=== PATIENT | female | born 1960 | race African-American/Black ===

== ENCOUNTER 2020-11-26 17:20 | Inpatient (IN) | payer MEDICAID ==
[~2020-11-26] VITALS: Ht 162.6 cm; Wt 147.0 kg
[~2020-11-26 17:20] MED LIST: ALBU18 IN; ATEN50TA PO; BENA40TA8 PO; CLON0.2T PO; FLUT500M2 IN; GLIP5TAB12 PO; METF-370 PO
[2020-11-26] MEDS ORDERED: methylPREDNISolone SOD SUCC 125 MG/2 ML VL IV ONE (18:45)
[2020-11-26] MEDS: IPRATROPIUM BROM 0.5 MG/2.5ML INH SOL NEB ONE ×2 (19:00→19:09)
[2020-11-26] MEDS: ALBUTEROL SULF 2.5 MG/0.5ML(0.5%) NEB SOLN NEB ONE ×2 (19:00→19:10)
[2020-11-26 19:58] LABS: Basophils # (auto) 0 10 ^3/uL (0-0.2); Basophils % (auto) 0.5 % (0.0-2.0); Eosinophils # (auto) 0.1 10 ^3/uL (0-0.8); Eosinophils % (auto) 0.9 % (0.0-7.0); Hematocrit 46.8 % (36.0-46.0); Hemoglobin 14.8 g/dL (12.2-16.2); Lymphocytes # (auto) 1.5 10 ^3/uL (0.4-5.4); Lymphocytes % (auto) 20.9 % (10.0-50.0); Mean Corpuscular Hemoglobin 28.6 pg (28.0-32.0); Mean Corpuscular Hgb Conc. 31.5 g/dL (32.0-36.0); Mean Corpuscular Volume 90.7 fL (80.0-100.0); Monocytes # (auto) 0.6 10 ^3/uL (0-1.3); Monocytes % (auto) 9.4 % (0.0-12.0); Neutrophils # (auto) 4.7 10 ^3/uL (1.6-8.6); Neutrophils % (auto) 68.3 % (37.0-80.0); Nucleated Red Blood Cells % 2.8 %; Platelet Count (auto) 220 10^3/uL (140-450); Red Blood Cells 5.16 10^6/uL (4.0-5.20); Red Cell Distribution Width 16.8 % (11.8-14.3); White Blood Cell 6.9 10^3/uL (4.4-10.8)
[2020-11-26 20:20] LABS: Albumin 2.7 g/dL (3.4-5.0); Calcium 8.3 mg/dL (8.5-10.1); Potassium 4.3 mmol/L (3.5-5.1)
[2020-11-26 20:28] LABS: BUN/Creatinine Ratio 22.2; Bilirubin, Total 0.8 mg/dL (0.2-1.0); Total Protein 7.8 g/dL (6.4-8.2)
[2020-11-26] MEDS ORDERED: FUROSEMIDE 40 MG/4 ML VIAL IV ONE (21:45)
[2020-11-27] MEDS ORDERED: ACETAMINOPHEN 500 MG TAB PO ONE (01:30)
[2020-11-27] MEDS ORDERED: IOHEXOL 350 MG/ML 100ML IJ ONE (10:19)
[2020-11-27] MEDS ORDERED: MORPHINE SULF INJ 2 MG/ML SYRINGE 1ML IV PRN (13:15)
[2020-11-27] MEDS ORDERED: NITROGLYCERIN 0.4 MG SL TAB SL PRN (13:15)
[2020-11-27] MEDS ORDERED: ONDANSETRON HCL 4 MG/2 ML VIAL IV PRN (14:00)
[2020-11-27] MEDS ORDERED: ATOR20TA50 PO (15:39)
[2020-11-27] MEDS ORDERED: NIFE1TAB30 PO (15:39)
[2020-11-27] MEDS ORDERED: DEXTROSE (50%) 50ML SYRG IV PRN (18:15)
[2020-11-27] MEDS: methylPREDNISolone SOD SUCC 40 MG/ML VL IV SCH (18:20)
[2020-11-27] MEDS: FUROSEMIDE 40 MG/4 ML VIAL IV SCH (18:25)
[2020-11-27] MEDS: ACCU-CHEK COMFORT CURVE STRIP VI SCH (18:25)
[2020-11-27] MEDS: HYDROcodone-ACET 5/325MG TAB PO PRN (19:07)
[2020-11-27 21:43] LABS: BUN/Creatinine Ratio 23.6; Calcium 8.8 mg/dL (8.5-10.1); Potassium 4.4 mmol/L (3.5-5.1)
[2020-11-27] MEDS: ENOXAPARIN SOD 150 MG/1 ML SYRINGE SC SCH (22:00)
[2020-11-27] MEDS: InsuLIN REG 1unit/0.01ml Soln (100units/ml) SC SCH (22:00)
[2020-11-28] MEDS: FUROSEMIDE 40 MG/4 ML VIAL IV SCH ×2 (06:00→17:50)
[2020-11-28] MEDS: methylPREDNISolone SOD SUCC 40 MG/ML VL IV SCH ×4 (06:00→17:50)
[2020-11-28 06:20] LABS: Basophils # (auto) 0 10 ^3/uL (0-0.2); Basophils % (auto) 0.2 % (0.0-2.0); Eosinophils # (auto) 0 10 ^3/uL (0-0.8); Hematocrit 48.6 % (36.0-46.0); Hemoglobin 15.4 g/dL (12.2-16.2); Lymphocytes # (auto) 0.5 10 ^3/uL (0.4-5.4); Lymphocytes % (auto) 7.4 % (10.0-50.0); Mean Corpuscular Hemoglobin 28.5 pg (28.0-32.0); Mean Corpuscular Hgb Conc. 31.6 g/dL (32.0-36.0); Mean Corpuscular Volume 90.1 fL (80.0-100.0); Monocytes # (auto) 0.4 10 ^3/uL (0-1.3); Monocytes % (auto) 5.4 % (0.0-12.0); Neutrophils # (auto) 5.8 10 ^3/uL (1.6-8.6); Nucleated Red Blood Cells % 0.9 %; Platelet Count (auto) 228 10^3/uL (140-450); Red Blood Cells 5.39 10^6/uL (4.0-5.20); White Blood Cell 6.7 10^3/uL (4.4-10.8)
[2020-11-28] MEDS ORDERED: FUROSEMIDE 40 MG/4 ML VIAL ONE (06:32)
[2020-11-28 06:37] LABS: BUN/Creatinine Ratio 27.1; Calcium 9.2 mg/dL (8.5-10.1); Magnesium 1.7 mg/dL (1.6-2.6); Potassium 4.7 mmol/L (3.5-5.1)
[2020-11-28] MEDS: InsuLIN REG 1unit/0.01ml Soln (100units/ml) SC SCH ×4 (06:39→22:00)
[2020-11-28] MEDS: ACCU-CHEK COMFORT CURVE STRIP VI SCH ×4 (06:39→22:14)
[2020-11-28] MEDS: ENOXAPARIN SOD 150 MG/1 ML SYRINGE SC SCH ×2 (09:58→22:00)
[2020-11-28] MEDS: levoFLOXacin 500MG 100 ML IV SCH (09:59)
[2020-11-28] MEDS ORDERED: metFORMIN HYDROCHLORIDE 500 MG TAB PO ONE (12:15)
[2020-11-28] MEDS ORDERED: glipiZIDE 5 MG TAB PO ONE (12:15)
[2020-11-28] MEDS ORDERED: TIZA4TAB3 PO (15:49)
[2020-11-28] MEDS ORDERED: FURO40TA4 PO (15:49)
[2020-11-28] MEDS ORDERED: POTA1TAB64 PO (15:49)
[2020-11-28] MEDS ORDERED: GAB100C PO (15:49)
[2020-11-28] MEDS ORDERED: HYDR-4072 PO (15:50)
[2020-11-28 16:30] VITALS: BP 144/73
[2020-11-28 21:05] VITALS: BP 149/84
[2020-11-28] MEDS: glipiZIDE 5 MG TAB PO SCH (22:00)
[2020-11-28] MEDS: metFORMIN HYDROCHLORIDE 500 MG TAB PO SCH (22:00)
[2020-11-28] MEDS: HYDROcodone-ACET 5/325MG TAB PO PRN (22:54)
[2020-11-29] MEDS: methylPREDNISolone SOD SUCC 40 MG/ML VL IV SCH ×4 (00:06→17:37)
[2020-11-29] MEDS: ATENOLOL 50 MG TAB PO SCH (05:00)
[2020-11-29 05:12] VITALS: BP 160/101
[2020-11-29] MEDS: InsuLIN REG 1unit/0.01ml Soln (100units/ml) SC SCH ×4 (06:04→22:04)
[2020-11-29 06:05] VITALS: BP 144/80
[2020-11-29] MEDS: FUROSEMIDE 40 MG/4 ML VIAL IV SCH ×2 (06:35→17:37)
[2020-11-29] MEDS: ACCU-CHEK COMFORT CURVE STRIP VI SCH ×4 (06:35→21:45)
[2020-11-29 07:38] VITALS: BP 159/107
[2020-11-29] MEDS: ATORVASTATIN 20 MG TAB PO SCH (10:20)
[2020-11-29] MEDS: metFORMIN HYDROCHLORIDE 500 MG TAB PO SCH (10:20)
[2020-11-29] MEDS: levoFLOXacin 500MG 100 ML IV SCH (10:20)
[2020-11-29] MEDS: ENOXAPARIN SOD 150 MG/1 ML SYRINGE SC SCH ×2 (10:21→21:44)
[2020-11-29] MEDS: glipiZIDE 5 MG TAB PO SCH ×2 (12:42→21:44)
[2020-11-29] MEDS: BENAZEPRIL HCL 10 MG TAB PO SCH (12:53)
[2020-11-29] MEDS: NIFEdipine ER 30 MG TAB PO SCH (12:54)
[2020-11-29 13:10] VITALS: BP 155/74
[2020-11-29] MEDS: cloNIDine HCL 0.1 MG TAB PO SCH ×2 (14:11→21:43)
[2020-11-29 16:08] VITALS: BP 123/58
[2020-11-29] MEDS: ACETAMINOPHEN 325 MG TAB PO PRN (17:38)
[2020-11-29 22:00] VITALS: BP 149/97
[2020-11-29] MEDS: MORPHINE SULF INJ 2 MG/ML SYRINGE 1ML IV PRN (22:01)
[2020-11-30] MEDS: methylPREDNISolone SOD SUCC 40 MG/ML VL IV SCH ×5 (00:23→23:32)
[2020-11-30] MEDS: HYDROcodone-ACET 5/325MG TAB PO PRN (01:10)
[2020-11-30 05:00] VITALS: BP 117/72
[2020-11-30] MEDS: FUROSEMIDE 40 MG/4 ML VIAL IV SCH (05:37)
[2020-11-30] MEDS: cloNIDine HCL 0.1 MG TAB PO SCH ×3 (05:56→21:43)
[2020-11-30] MEDS: MORPHINE SULF INJ 2 MG/ML SYRINGE 1ML IV PRN ×2 (06:21→19:32)
[2020-11-30] MEDS: ACCU-CHEK COMFORT CURVE STRIP VI SCH ×4 (06:21→21:48)
[2020-11-30] MEDS: InsuLIN REG 1unit/0.01ml Soln (100units/ml) SC SCH ×4 (06:59→21:48)
[2020-11-30 07:23] LABS: Basophils # (auto) 0 10 ^3/uL (0-0.2); Basophils % (auto) 0.1 % (0.0-2.0); Eosinophils # (auto) 0 10 ^3/uL (0-0.8); Hemoglobin 15.3 g/dL (12.2-16.2); Lymphocytes # (auto) 0.5 10 ^3/uL (0.4-5.4); Lymphocytes % (auto) 7.4 % (10.0-50.0); Mean Corpuscular Hemoglobin 28.2 pg (28.0-32.0); Mean Corpuscular Hgb Conc. 31.9 g/dL (32.0-36.0); Mean Corpuscular Volume 88.4 fL (80.0-100.0); Monocytes # (auto) 0.4 10 ^3/uL (0-1.3); Monocytes % (auto) 6.5 % (0.0-12.0); Neutrophils # (auto) 5.8 10 ^3/uL (1.6-8.6); Nucleated Red Blood Cells % 0.5 %; Platelet Count (auto) 233 10^3/uL (140-450); Red Blood Cells 5.43 10^6/uL (4.0-5.20); Red Cell Distribution Width 16.5 % (11.8-14.3); White Blood Cell 6.7 10^3/uL (4.4-10.8)
[2020-11-30 07:45] LABS: Potassium 4.1 mmol/L (3.5-5.1)
[2020-11-30 07:49] LABS: BUN/Creatinine Ratio 37.7; Calcium 9.1 mg/dL (8.5-10.1); Magnesium 1.8 mg/dL (1.6-2.6)
[2020-11-30 09:00] VITALS: BP 124/86
[2020-11-30] MEDS: levoFLOXacin 500MG 100 ML IV SCH (10:22)
[2020-11-30] MEDS: BENAZEPRIL HCL 10 MG TAB PO SCH (10:23)
[2020-11-30] MEDS: ATORVASTATIN 20 MG TAB PO SCH (10:23)
[2020-11-30] MEDS: ENOXAPARIN SOD 150 MG/1 ML SYRINGE SC SCH ×2 (10:24→21:27)
[2020-11-30] MEDS: ATENOLOL 50 MG TAB PO SCH (10:24)
[2020-11-30] MEDS: NIFEdipine ER 30 MG TAB PO SCH (10:24)
[2020-11-30] MEDS: glipiZIDE 5 MG TAB PO SCH ×2 (12:57→21:27)
[2020-11-30 13:00] VITALS: BP 143/82
[2020-11-30] MEDS: ACETAMINOPHEN 325 MG TAB PO PRN (17:19)
[2020-11-30 22:00] VITALS: BP 117/67
[2020-12-01] MEDS: MORPHINE SULF INJ 2 MG/ML SYRINGE 1ML IV PRN ×3 (01:09→15:36)
[2020-12-01 05:00] VITALS: BP 132/82
[2020-12-01] MEDS: methylPREDNISolone SOD SUCC 40 MG/ML VL IV SCH ×3 (05:26→17:34)
[2020-12-01] MEDS: cloNIDine HCL 0.1 MG TAB PO SCH ×4 (05:26→21:41)
[2020-12-01 06:15] LABS: Basophils # (auto) 0 10 ^3/uL (0-0.2); Basophils % (auto) 0.1 % (0.0-2.0); Eosinophils # (auto) 0 10 ^3/uL (0-0.8); Hematocrit 47.7 % (36.0-46.0); Hemoglobin 15.4 g/dL (12.2-16.2); Lymphocytes # (auto) 0.4 10 ^3/uL (0.4-5.4); Mean Corpuscular Hemoglobin 28.3 pg (28.0-32.0); Mean Corpuscular Hgb Conc. 32.2 g/dL (32.0-36.0); Mean Corpuscular Volume 87.8 fL (80.0-100.0); Monocytes # (auto) 0.6 10 ^3/uL (0-1.3); Monocytes % (auto) 9.8 % (0.0-12.0); Neutrophils # (auto) 5.4 10 ^3/uL (1.6-8.6); Neutrophils % (auto) 84.1 % (37.0-80.0); Nucleated Red Blood Cells % 0.5 %; Platelet Count (auto) 210 10^3/uL (140-450); Red Blood Cells 5.43 10^6/uL (4.0-5.20); White Blood Cell 6.4 10^3/uL (4.4-10.8)
[2020-12-01 06:37] LABS: Calcium 8.5 mg/dL (8.5-10.1); Magnesium 2.1 mg/dL (1.6-2.6); Potassium 4.3 mmol/L (3.5-5.1)
[2020-12-01] MEDS: ACCU-CHEK COMFORT CURVE STRIP VI SCH ×4 (06:38→21:15)
[2020-12-01] MEDS: InsuLIN REG 1unit/0.01ml Soln (100units/ml) SC SCH ×4 (06:39→21:41)
[2020-12-01 06:41] LABS: BUN/Creatinine Ratio 43.1
[2020-12-01 09:00] VITALS: BP 158/110
[2020-12-01] MEDS: levoFLOXacin 500MG 100 ML IV SCH (09:49)
[2020-12-01] MEDS: NIFEdipine ER 30 MG TAB PO SCH (09:49)
[2020-12-01] MEDS: ENOXAPARIN SOD 150 MG/1 ML SYRINGE SC SCH ×2 (09:49→21:15)
[2020-12-01] MEDS: ATORVASTATIN 20 MG TAB PO SCH (09:50)
[2020-12-01] MEDS: BENAZEPRIL HCL 10 MG TAB PO SCH (09:50)
[2020-12-01] MEDS: ATENOLOL 50 MG TAB PO SCH (09:51)
[2020-12-01] MEDS: glipiZIDE 5 MG TAB PO SCH ×2 (09:55→21:16)
[2020-12-01] MEDS: FUROSEMIDE 40 MG/4 ML VIAL IV SCH (12:25)
[2020-12-01 13:00] VITALS: BP 144/95
[2020-12-01] MEDS ORDERED: LORazepam 2MG/ML-1ML VIAL IV ONE (17:00)
[2020-12-01] MEDS ORDERED: diazePAM 5 MG TAB PO ONE (17:00)
[2020-12-01 17:39] VITALS: BP 100/55
[2020-12-01 22:00] VITALS: BP 135/78
[2020-12-01] MEDS: HYDROcodone-ACET 5/325MG TAB PO PRN (23:09)
[2020-12-02] MEDS: methylPREDNISolone SOD SUCC 40 MG/ML VL IV SCH ×3 (00:18→11:51)
[2020-12-02 05:00] VITALS: BP 134/89
[2020-12-02] MEDS: MORPHINE SULF INJ 2 MG/ML SYRINGE 1ML IV PRN ×2 (05:46→14:45)
[2020-12-02] MEDS: cloNIDine HCL 0.1 MG TAB PO SCH ×2 (05:47→14:06)
[2020-12-02 06:30] LABS: Basophils # (auto) 0 10 ^3/uL (0-0.2); Basophils % (auto) 0.1 % (0.0-2.0); Eosinophils # (auto) 0 10 ^3/uL (0-0.8); Hematocrit 46.9 % (36.0-46.0); Lymphocytes # (auto) 0.4 10 ^3/uL (0.4-5.4); Mean Corpuscular Volume 87.5 fL (80.0-100.0); Monocytes # (auto) 0.5 10 ^3/uL (0-1.3); Monocytes % (auto) 8.6 % (0.0-12.0); Neutrophils # (auto) 4.6 10 ^3/uL (1.6-8.6); Neutrophils % (auto) 84.3 % (37.0-80.0); Nucleated Red Blood Cells % 0.4 %; Platelet Count (auto) 196 10^3/uL (140-450); Red Blood Cells 5.36 10^6/uL (4.0-5.20); Red Cell Distribution Width 15.9 % (11.8-14.3); White Blood Cell 5.4 10^3/uL (4.4-10.8)
[2020-12-02] MEDS: ACCU-CHEK COMFORT CURVE STRIP VI SCH ×2 (06:30→11:56)
[2020-12-02] MEDS: InsuLIN REG 1unit/0.01ml Soln (100units/ml) SC SCH ×2 (06:31→11:56)
[2020-12-02 06:46] LABS: BUN/Creatinine Ratio 36.7; Magnesium 2.1 mg/dL (1.6-2.6); Potassium 4.3 mmol/L (3.5-5.1)
[2020-12-02 06:49] LABS: Bilirubin, Total 0.9 mg/dL (0.2-1.0); Total Protein 7.1 g/dL (6.4-8.2)
[2020-12-02 09:00] VITALS: BP 145/95
[2020-12-02] MEDS: levoFLOXacin 500MG 100 ML IV SCH (09:58)
[2020-12-02] MEDS: FUROSEMIDE 40 MG/4 ML VIAL IV SCH (09:58)
[2020-12-02] MEDS: ATORVASTATIN 20 MG TAB PO SCH (09:59)
[2020-12-02] MEDS: BENAZEPRIL HCL 10 MG TAB PO SCH (09:59)
[2020-12-02] MEDS: NIFEdipine ER 30 MG TAB PO SCH (09:59)
[2020-12-02] MEDS: ENOXAPARIN SOD 150 MG/1 ML SYRINGE SC SCH (10:00)
[2020-12-02] MEDS: ATENOLOL 50 MG TAB PO SCH (10:00)
[2020-12-02] MEDS: glipiZIDE 5 MG TAB PO SCH (10:13)
[2020-12-02 13:00] VITALS: BP 149/92
== END 2020-12-02 17:17 | disposition left against medical advice (07) | DRG 140 ==
LOC: ER 17:20 → EDBD 17:20 → TELE 17:21 → TELE-EAST 11-28 14:39
PROVIDERS: ADMIT Internal Medicine; ATTEND Internal Medicine
DX: J44.1 Chronic obstructive pulmonary disease with (acute) exacerbation (principal); J96.21 Acute and chronic respiratory failure with hypoxia; J18.9 Pneumonia, unspecified organism; I50.33 Acute on chronic diastolic (congestive) heart failure; I11.0 Hypertensive heart disease with heart failure; E66.01 Morbid (severe) obesity due to excess calories; E87.2 Acidosis; I27.20 Pulmonary hypertension, unspecified; Z68.43 Body mass index [BMI] 50.0-59.9, adult; J44.0 Chronic obstructive pulmonary disease with (acute) lower respiratory infection; E11.9 Type 2 diabetes mellitus without complications; Z20.822 Contact with and (suspected) exposure to COVID-19; K21.9 Gastro-esophageal reflux disease without esophagitis; Z53.20 Procedure and treatment not carried out because of patient's decision for unspecified reasons; M51.36 Other intervertebral disc degeneration, lumbar region; B18.2 Chronic viral hepatitis C; T50.1X5A Adverse effect of loop [high-ceiling] diuretics, initial encounter; Y92.89 Other specified places as the place of occurrence of the external cause; Z87.891 Personal history of nicotine dependence; Z90.710 Acquired absence of both cervix and uterus; Z91.19 Patient's noncompliance with other medical treatment and regimen
CPT/HCPCS: 36415; 71045; 78582; 80048; 80053; 82962; 83036; 83605; 83735; 83880; 84484; 85025; 85379; 87426; 93005; 93306; 93970; 97163; G0378; J1815; J1956

== ENCOUNTER 2020-12-18 12:28 | Inpatient (IN) | payer MEDICAID ==
[~2020-12-18] VITALS: Ht 160 cm; Wt 145.9 kg
[~2020-12-18 12:28] MED LIST changes: +ATOR20TA50 PO; +FURO40TA4 PO; +GAB100C PO; +HYDR-4072 PO; +NIFE1TAB30 PO; +POTA1TAB64 PO; +TIZA4TAB3 PO
[2020-12-18 13:35] LABS: Basophils # (auto) 0 10 ^3/uL (0-0.2); Basophils % (auto) 0.6 % (0.0-2.0); Eosinophils # (auto) 0.3 10 ^3/uL (0-0.8); Eosinophils % (auto) 4.8 % (0.0-7.0); Hematocrit 47.5 % (36.0-46.0); Lymphocytes % (auto) 18.3 % (10.0-50.0); Mean Corpuscular Hemoglobin 28.1 pg (28.0-32.0); Mean Corpuscular Hgb Conc. 31.7 g/dL (32.0-36.0); Mean Corpuscular Volume 88.7 fL (80.0-100.0); Monocytes # (auto) 0.4 10 ^3/uL (0-1.3); Monocytes % (auto) 7.7 % (0.0-12.0); Neutrophils # (auto) 3.8 10 ^3/uL (1.6-8.6); Neutrophils % (auto) 68.6 % (37.0-80.0); Nucleated Red Blood Cells % 0.5 %; Platelet Count (auto) 225 10^3/uL (140-450); Red Blood Cells 5.35 10^6/uL (4.0-5.20); Red Cell Distribution Width 16.6 % (11.8-14.3); White Blood Cell 5.6 10^3/uL (4.4-10.8)
[2020-12-18 13:51] LABS: Alanine Aminotransferase 25 U/L (13-56); Albumin 3.3 g/dL (3.4-5.0); Anion Gap 4 (5-15); Aspartate Aminotransferase 20 U/L (15-37); Blood Urea Nitrogen 14 mg/dL (7-18); Calcium 9.2 mg/dL (8.5-10.1); Carbon Dioxide 35 mmol/L (21-32); Chloride 101 mmol/L (98-107); GFR African American 110 mL/min; GFR Non-African American 91 mL/min; Glucose 105 mg/dL (74-106); INR 1.09 (0.9-1.15); Potassium 3.8 mmol/L (3.5-5.1); Sodium 140 mmol/L (136-145)
[2020-12-18 13:55] LABS: Alkaline Phosphatase 72 U/L (45-117); Bilirubin, Total 0.8 mg/dL (0.2-1.0); Total Protein 8.1 g/dL (6.4-8.2)
[2020-12-18] MEDS ORDERED: HYDROcodone-ACET 10/325MG TAB PO ONE (14:00)
[2020-12-18] MEDS ORDERED: cefTRIAXone 1GM/50ML D5W 50 ML IV ONE (15:45)
[2020-12-18] MEDS ORDERED: AZITHROMYCIN 500MG/ 250ML 250 ML IV ONE (15:45)
[2020-12-18] MEDS ORDERED: ONDANSETRON HCL 4 MG/2 ML VIAL IV PRN (15:45)
[2020-12-18] MEDS ORDERED: NITROGLYCERIN 0.4 MG SL TAB SL PRN (15:45)
[2020-12-18] MEDS ORDERED: DEXTROSE (50%) 50ML SYRG IV PRN (15:45)
[2020-12-18] MEDS ORDERED: MORPHINE SULF INJ 2 MG/ML SYRINGE 1ML IV PRN (15:45)
[2020-12-18] MEDS ORDERED: methylPREDNISolone SOD SUCC 125 MG/2 ML VL IV ONE (15:45)
[2020-12-18] MEDS ORDERED: FUROSEMIDE 20 MG/2 ML VIAL IV ONE (15:45)
[2020-12-18] MEDS ORDERED: HYDROcodone-ACET 5/325MG TAB PO PRN (15:45)
[2020-12-18] MEDS ORDERED: ALBUTEROL SULF 2.5 MG/0.5ML(0.5%) NEB SOLN NEB PRN (16:00)
[2020-12-18] MEDS ORDERED: IPRATROPIUM BROM 0.5 MG/2.5ML INH SOL NEB PRN (16:00)
[2020-12-18] MEDS: levoFLOXacin 500MG 100 ML IV SCH (17:06)
[2020-12-18] MEDS: ACCU-CHEK COMFORT CURVE STRIP VI SCH ×2 (17:14→22:30)
[2020-12-18] MEDS: glipiZIDE 5 MG TAB PO SCH (17:22)
[2020-12-18] MEDS: InsuLIN REG 1unit/0.01ml Soln (100units/ml) SC SCH ×2 (17:25→22:30)
[2020-12-18] MEDS: hydrALAZINE HCL 20 MG/ML VL IV PRN (17:29)
[2020-12-18 21:04] VITALS: BP 157/84
[2020-12-18 21:25] VITALS: BP 154/81
[2020-12-18 22:00] VITALS: BP 154/81
[2020-12-18] MEDS: ACETAMINOPHEN 325 MG TAB PO PRN (22:20)
[2020-12-18] MEDS: MORPHINE SULF INJ 2 MG/ML SYRINGE 1ML IV PRN (22:25)
[2020-12-18] MEDS: methylPREDNISolone SOD SUCC 40 MG/ML VL IV SCH (22:30)
[2020-12-18] MEDS: ATORVASTATIN 20 MG TAB PO SCH (22:30)
[2020-12-19] MEDS: MORPHINE SULF INJ 2 MG/ML SYRINGE 1ML IV PRN ×4 (04:26→22:38)
[2020-12-19] MEDS: ACETAMINOPHEN 325 MG TAB PO PRN (04:55)
[2020-12-19] MEDS: hydrALAZINE HCL 20 MG/ML VL IV PRN (04:55)
[2020-12-19 05:25] VITALS: BP 161/94
[2020-12-19] MEDS: methylPREDNISolone SOD SUCC 40 MG/ML VL IV SCH ×3 (06:00→22:36)
[2020-12-19] MEDS: InsuLIN REG 1unit/0.01ml Soln (100units/ml) SC SCH ×4 (06:03→22:37)
[2020-12-19] MEDS: ACCU-CHEK COMFORT CURVE STRIP VI SCH ×4 (06:04→22:37)
[2020-12-19 06:16] LABS: Basophils # (auto) 0 10 ^3/uL (0-0.2); Basophils % (auto) 0.3 % (0.0-2.0); Eosinophils # (auto) 0 10 ^3/uL (0-0.8); Hematocrit 46.9 % (36.0-46.0); Hemoglobin 15.1 g/dL (12.2-16.2); Lymphocytes # (auto) 0.6 10 ^3/uL (0.4-5.4); Lymphocytes % (auto) 9.3 % (10.0-50.0); Mean Corpuscular Hemoglobin 28.5 pg (28.0-32.0); Mean Corpuscular Hgb Conc. 32.2 g/dL (32.0-36.0); Mean Corpuscular Volume 88.7 fL (80.0-100.0); Monocytes # (auto) 0.2 10 ^3/uL (0-1.3); Monocytes % (auto) 3.3 % (0.0-12.0); Neutrophils # (auto) 5.4 10 ^3/uL (1.6-8.6); Neutrophils % (auto) 87.1 % (37.0-80.0); Nucleated Red Blood Cells % 0.9 %; Platelet Count (auto) 285 10^3/uL (140-450); Red Blood Cells 5.29 10^6/uL (4.0-5.20); Red Cell Distribution Width 16.7 % (11.8-14.3); White Blood Cell 6.2 10^3/uL (4.4-10.8)
[2020-12-19 06:30] LABS: Potassium 3.9 mmol/L (3.5-5.1)
[2020-12-19 06:34] LABS: BUN/Creatinine Ratio 26.4; Calcium 9.2 mg/dL (8.5-10.1); Magnesium 1.8 mg/dL (1.6-2.6)
[2020-12-19] MEDS: glipiZIDE 5 MG TAB PO SCH ×2 (07:01→17:16)
[2020-12-19 09:00] VITALS: BP 144/68
[2020-12-19] MEDS: ENOXAPARIN SOD 40 MG/0.4 ML SYRINGE SC SCH (10:44)
[2020-12-19] MEDS: FUROSEMIDE 40 MG/4 ML VIAL IV SCH (10:45)
[2020-12-19] MEDS: NIFEdipine ER 30 MG TAB PO SCH (10:46)
[2020-12-19] MEDS: BENAZEPRIL HCL 10 MG TAB PO SCH (10:53)
[2020-12-19] MEDS: ATENOLOL 50 MG TAB PO SCH (10:53)
[2020-12-19] MEDS: levoFLOXacin 500MG 100 ML IV SCH (11:44)
[2020-12-19 13:00] VITALS: BP 154/94
[2020-12-19 17:35] VITALS: BP 141/84
[2020-12-19 22:00] VITALS: BP 144/80
[2020-12-19] MEDS: ATORVASTATIN 20 MG TAB PO SCH (22:36)
[2020-12-20 05:00] VITALS: BP 144/73
[2020-12-20 06:36] LABS: Calcium 8.9 mg/dL (8.5-10.1); Potassium 4.2 mmol/L (3.5-5.1)
[2020-12-20] MEDS: glipiZIDE 5 MG TAB PO SCH (06:36)
[2020-12-20] MEDS: ACCU-CHEK COMFORT CURVE STRIP VI SCH ×2 (06:36→11:26)
[2020-12-20] MEDS: methylPREDNISolone SOD SUCC 40 MG/ML VL IV SCH ×2 (06:36→13:52)
[2020-12-20] MEDS: InsuLIN REG 1unit/0.01ml Soln (100units/ml) SC SCH ×2 (06:37→11:26)
[2020-12-20 06:39] LABS: BUN/Creatinine Ratio 31.3
[2020-12-20] MEDS: MORPHINE SULF INJ 2 MG/ML SYRINGE 1ML IV PRN ×2 (07:50→15:03)
[2020-12-20] MEDS: FUROSEMIDE 40 MG/4 ML VIAL IV SCH (07:53)
[2020-12-20] MEDS: ATENOLOL 50 MG TAB PO SCH (07:54)
[2020-12-20] MEDS: BENAZEPRIL HCL 10 MG TAB PO SCH (07:55)
[2020-12-20] MEDS: ENOXAPARIN SOD 40 MG/0.4 ML SYRINGE SC SCH (07:55)
[2020-12-20] MEDS: NIFEdipine ER 30 MG TAB PO SCH (07:55)
[2020-12-20] MEDS: levoFLOXacin 500MG 100 ML IV SCH (07:56)
[2020-12-20 08:07] VITALS: BP 142/104
[2020-12-20 13:02] VITALS: BP 146/76
[2020-12-20 14:20] VITALS: BP 146/76
== END 2020-12-20 16:00 | disposition home or self-care (01) | DRG 133 ==
LOC: ER 12:28 → EDBD 12:28 → EDSEX 12:28 → TELE 12:29 → TELE-CENTR 20:18 → TELE-EAST 20:31 → TELE-CENTR 12-19 02:18
PROVIDERS: ADMIT Internal Medicine; ATTEND Internal Medicine
DX: J96.21 Acute and chronic respiratory failure with hypoxia (principal); J18.9 Pneumonia, unspecified organism; I50.43 Acute on chronic combined systolic (congestive) and diastolic (congestive) heart failure; J44.0 Chronic obstructive pulmonary disease with (acute) lower respiratory infection; I11.0 Hypertensive heart disease with heart failure; J44.1 Chronic obstructive pulmonary disease with (acute) exacerbation; E11.9 Type 2 diabetes mellitus without complications; J20.9 Acute bronchitis, unspecified; E66.01 Morbid (severe) obesity due to excess calories; E78.5 Hyperlipidemia, unspecified; Z20.822 Contact with and (suspected) exposure to COVID-19; Z68.43 Body mass index [BMI] 50.0-59.9, adult; Z82.49 Family history of ischemic heart disease and other diseases of the circulatory system; Z83.3 Family history of diabetes mellitus; Z87.891 Personal history of nicotine dependence; Z90.710 Acquired absence of both cervix and uterus; Z99.81 Dependence on supplemental oxygen; K21.9 Gastro-esophageal reflux disease without esophagitis
CPT/HCPCS: 36415; 71045; 80048; 80053; 82962; 83735; 83880; 84484; 85025; 85610; 85730; 87081; 87426; 93005; 94640; 96365; 96367; 96375; 99291; G0378; J0696; J1815; J1956

== ENCOUNTER 2021-01-14 12:16 | Inpatient (IN) | payer MEDICAID ==
[~2021-01-14] VITALS: Ht 160 cm; Wt 145.2 kg
[2021-01-14] MEDS ORDERED: cefTRIAXone 1GM/50ML D5W 50 ML IV ONE (13:15)
[2021-01-14] MEDS ORDERED: IPRATROPIUM BROM 0.5 MG/2.5ML INH SOL NEB ONE (13:15)
[2021-01-14] MEDS ORDERED: FUROSEMIDE 40 MG/4 ML VIAL IV ONE (13:15)
[2021-01-14] MEDS ORDERED: ALBUTEROL SULF 2.5 MG/0.5ML(0.5%) NEB SOLN NEB ONE (13:15)
[2021-01-14 13:26] LABS: Basophils # (auto) 0 10 ^3/uL (0-0.2); Basophils % (auto) 0.3 % (0.0-2.0); Eosinophils # (auto) 0.1 10 ^3/uL (0-0.8); Eosinophils % (auto) 1.1 % (0.0-7.0); Hematocrit 45.1 % (36.0-46.0); Hemoglobin 14.1 g/dL (12.2-16.2); Lymphocytes # (auto) 0.8 10 ^3/uL (0.4-5.4); Lymphocytes % (auto) 15.1 % (10.0-50.0); Mean Corpuscular Hemoglobin 28.2 pg (28.0-32.0); Mean Corpuscular Hgb Conc. 31.3 g/dL (32.0-36.0); Mean Corpuscular Volume 90.2 fL (80.0-100.0); Monocytes # (auto) 0.4 10 ^3/uL (0-1.3); Monocytes % (auto) 8.5 % (0.0-12.0); Neutrophils # (auto) 3.9 10 ^3/uL (1.6-8.6); Nucleated Red Blood Cells % 0.2 %; Platelet Count (auto) 191 10^3/uL (140-450); Red Cell Distribution Width 16.3 % (11.8-14.3); White Blood Cell 5.2 10^3/uL (4.4-10.8)
[2021-01-14 13:35] LABS: Anion Gap 0 (5-15); Blood Urea Nitrogen 12 mg/dL (7-18); Calcium 8.7 mg/dL (8.5-10.1); Carbon Dioxide 40 mmol/L (21-32); Chloride 102 mmol/L (98-107); Glucose 129 mg/dL (74-106); Potassium 4.5 mmol/L (3.5-5.1); Sodium 142 mmol/L (136-145)
[2021-01-14 13:40] LABS: Alanine Aminotransferase 27 U/L (13-56); Alkaline Phosphatase 64 U/L (45-117); Aspartate Aminotransferase 21 U/L (15-37); BUN/Creatinine Ratio 21.8; Bilirubin, Total 0.5 mg/dL (0.2-1.0); GFR African American 145 mL/min; GFR Non-African American 120 mL/min; Total Protein 7.2 g/dL (6.4-8.2)
[2021-01-14] MEDS ORDERED: HYDROcodone-ACET 5/325MG TAB PO ONE (13:45)
[2021-01-14 15:16] LABS: Urine Bacteria NONE SEEN /hpf (None Seen); Urine Blood Negative /uL (Negative); Urine Hyaline Cast FEW /lpf (0 - 2); Urine Specific Gravity 1.009 (1.001-1.035); Urine WBC 1 /hpf (0 - 5)
[2021-01-14] MEDS ORDERED: ACETAMINOPHEN 325 MG TAB PO PRN (16:45)
[2021-01-14] MEDS ORDERED: HYDROcodone-ACET 10/325MG TAB PO PRN (16:45)
[2021-01-14] MEDS ORDERED: ONDANSETRON HCL 4 MG/2 ML VIAL IV PRN (16:45)
[2021-01-14] MEDS ORDERED: MORPHINE SULF INJ 2 MG/ML SYRINGE 1ML IV PRN (16:45)
[2021-01-14] MEDS ORDERED: NITROGLYCERIN 0.4 MG SL TAB SL PRN (16:45)
[2021-01-14] MEDS ORDERED: DEXTROSE (50%) 50ML SYRG IV PRN (17:00)
[2021-01-14] MEDS: glipiZIDE 5 MG TAB PO SCH (17:17)
[2021-01-14] MEDS: MORPHINE SULF INJ 2 MG/ML SYRINGE 1ML IV PRN (17:18)
[2021-01-14] MEDS: ACCU-CHEK COMFORT CURVE STRIP VI SCH ×2 (17:24→22:47)
[2021-01-14] MEDS: InsuLIN REG 1unit/0.01ml Soln (100units/ml) SC SCH ×2 (17:33→22:20)
[2021-01-14 17:51] VITALS: BP 124/70
[2021-01-14] MEDS: ALBUTEROL SULF 2.5 MG/0.5ML(0.5%) NEB SOLN NEB SCH ×2 (19:03→22:22)
[2021-01-14] MEDS: IPRATROPIUM BROM 0.5 MG/2.5ML INH SOL NEB SCH ×2 (19:03→22:22)
[2021-01-14 19:30] VITALS: BP 124/70
[2021-01-14 22:00] VITALS: BP 178/77
[2021-01-14] MEDS ORDERED: GABAPENTIN 100 MG CAP PO SCH (22:00)
[2021-01-14] MEDS: cloNIDine HCL 0.1 MG TAB PO SCH (22:15)
[2021-01-14] MEDS: ATORVASTATIN 20 MG TAB PO SCH (22:15)
[2021-01-14] MEDS: HEPARIN SODIUM (PORCINE) 5000 UNITS/ML 1ML VIAL SC SCH (22:20)
[2021-01-15] VITALS (7 sets, daily range): BP systolic 92–124; BP diastolic 46–96
[2021-01-15] MEDS ORDERED: FUROSEMIDE 40 MG/4 ML VIAL IV SCH (06:00)
[2021-01-15] MEDS: cloNIDine HCL 0.1 MG TAB PO SCH ×3 (06:27→22:56)
[2021-01-15] MEDS: glipiZIDE 5 MG TAB PO SCH ×2 (06:27→17:00)
[2021-01-15] MEDS: HEPARIN SODIUM (PORCINE) 5000 UNITS/ML 1ML VIAL SC SCH ×3 (06:28→22:43)
[2021-01-15] MEDS: ACCU-CHEK COMFORT CURVE STRIP VI SCH ×4 (06:28→22:44)
[2021-01-15] MEDS: InsuLIN REG 1unit/0.01ml Soln (100units/ml) SC SCH ×4 (06:34→22:00)
[2021-01-15 06:41] LABS: Basophils # (auto) 0 10 ^3/uL (0-0.2); Basophils % (auto) 0.1 % (0.0-2.0); Eosinophils # (auto) 0 10 ^3/uL (0-0.8); Eosinophils % (auto) 0.3 % (0.0-7.0); Hematocrit 45.4 % (36.0-46.0); Hemoglobin 14.2 g/dL (12.2-16.2); Lymphocytes # (auto) 0.4 10 ^3/uL (0.4-5.4); Lymphocytes % (auto) 5.5 % (10.0-50.0); Mean Corpuscular Hemoglobin 28.2 pg (28.0-32.0); Mean Corpuscular Hgb Conc. 31.3 g/dL (32.0-36.0); Mean Corpuscular Volume 90.1 fL (80.0-100.0); Monocytes # (auto) 0.6 10 ^3/uL (0-1.3); Monocytes % (auto) 7.4 % (0.0-12.0); Neutrophils % (auto) 86.7 % (37.0-80.0); Nucleated Red Blood Cells % 0.1 %; Platelet Count (auto) 247 10^3/uL (140-450); Red Blood Cells 5.04 10^6/uL (4.0-5.20); Red Cell Distribution Width 16.4 % (11.8-14.3); White Blood Cell 8.1 10^3/uL (4.4-10.8)
[2021-01-15 06:50] LABS: Potassium 4.6 mmol/L (3.5-5.1)
[2021-01-15 07:01] LABS: BUN/Creatinine Ratio 18.9; Calcium 9.1 mg/dL (8.5-10.1); Magnesium 1.8 mg/dL (1.6-2.6)
[2021-01-15] MEDS: ALBUTEROL SULF 2.5 MG/0.5ML(0.5%) NEB SOLN NEB SCH ×5 (07:16→22:03)
[2021-01-15] MEDS: IPRATROPIUM BROM 0.5 MG/2.5ML INH SOL NEB SCH ×5 (07:16→22:03)
[2021-01-15] MEDS: ATENOLOL 25 MG TAB PO SCH (10:00)
[2021-01-15] MEDS: BENAZEPRIL HCL 10 MG TAB PO SCH (10:00)
[2021-01-15] MEDS: NIFEdipine ER 30 MG TAB PO SCH (10:00)
[2021-01-15] MEDS: levoFLOXacin 500MG 100 ML IV SCH (10:11)
[2021-01-15] MEDS ORDERED: GABAPENTIN 100 MG CAP PO ONE (17:45)
[2021-01-15] MEDS: MORPHINE SULF INJ 2 MG/ML SYRINGE 1ML IV PRN (22:05)
[2021-01-15] MEDS: ATORVASTATIN 20 MG TAB PO SCH (22:44)
[2021-01-16] VITALS (9 sets, daily range): BP systolic 125–145; BP diastolic 78–90
[2021-01-16] MEDS: MORPHINE SULF INJ 2 MG/ML SYRINGE 1ML IV PRN ×3 (04:58→21:51)
[2021-01-16 06:35] LABS: Basophils # (auto) 0 10 ^3/uL (0-0.2); Basophils % (auto) 0.5 % (0.0-2.0); Eosinophils # (auto) 0.2 10 ^3/uL (0-0.8); Eosinophils % (auto) 4.5 % (0.0-7.0); Hematocrit 42.7 % (36.0-46.0); Hemoglobin 13.6 g/dL (12.2-16.2); Lymphocytes # (auto) 0.8 10 ^3/uL (0.4-5.4); Lymphocytes % (auto) 16.9 % (10.0-50.0); Mean Corpuscular Hemoglobin 28.2 pg (28.0-32.0); Mean Corpuscular Hgb Conc. 31.8 g/dL (32.0-36.0); Mean Corpuscular Volume 88.6 fL (80.0-100.0); Monocytes # (auto) 0.5 10 ^3/uL (0-1.3); Monocytes % (auto) 11.5 % (0.0-12.0); Neutrophils # (auto) 3.2 10 ^3/uL (1.6-8.6); Neutrophils % (auto) 66.6 % (37.0-80.0); Platelet Count (auto) 171 10^3/uL (140-450); Red Blood Cells 4.82 10^6/uL (4.0-5.20); Red Cell Distribution Width 16.4 % (11.8-14.3); White Blood Cell 4.7 10^3/uL (4.4-10.8)
[2021-01-16] MEDS: cloNIDine HCL 0.1 MG TAB PO SCH ×3 (06:40→21:51)
[2021-01-16] MEDS: ACCU-CHEK COMFORT CURVE STRIP VI SCH ×4 (06:41→21:52)
[2021-01-16] MEDS: InsuLIN REG 1unit/0.01ml Soln (100units/ml) SC SCH ×4 (06:41→22:00)
[2021-01-16] MEDS: HEPARIN SODIUM (PORCINE) 5000 UNITS/ML 1ML VIAL SC SCH ×3 (06:41→21:53)
[2021-01-16] MEDS: glipiZIDE 5 MG TAB PO SCH ×2 (06:41→17:38)
[2021-01-16 06:48] LABS: BUN/Creatinine Ratio 29.8; Calcium 8.9 mg/dL (8.5-10.1); Magnesium 1.6 mg/dL (1.6-2.6); Potassium 4.1 mmol/L (3.5-5.1)
[2021-01-16] MEDS: ALBUTEROL SULF 2.5 MG/0.5ML(0.5%) NEB SOLN NEB SCH ×5 (07:01→22:49)
[2021-01-16] MEDS: IPRATROPIUM BROM 0.5 MG/2.5ML INH SOL NEB SCH ×5 (07:01→22:49)
[2021-01-16] MEDS: GABAPENTIN 100 MG CAP PO SCH (09:56)
[2021-01-16] MEDS: levoFLOXacin 500MG 100 ML IV SCH (09:56)
[2021-01-16] MEDS: BENAZEPRIL HCL 10 MG TAB PO SCH (09:57)
[2021-01-16] MEDS: NIFEdipine ER 30 MG TAB PO SCH (09:58)
[2021-01-16] MEDS: ATENOLOL 25 MG TAB PO SCH (09:58)
[2021-01-16] MEDS: ATORVASTATIN 20 MG TAB PO SCH (21:50)
[2021-01-17 05:16] VITALS: BP 151/91
[2021-01-17] MEDS: IPRATROPIUM BROM 0.5 MG/2.5ML INH SOL NEB SCH ×3 (06:09→13:44)
[2021-01-17] MEDS: ALBUTEROL SULF 2.5 MG/0.5ML(0.5%) NEB SOLN NEB SCH ×3 (06:09→13:44)
[2021-01-17] MEDS: cloNIDine HCL 0.1 MG TAB PO SCH (06:46)
[2021-01-17] MEDS: HEPARIN SODIUM (PORCINE) 5000 UNITS/ML 1ML VIAL SC SCH (06:47)
[2021-01-17] MEDS: glipiZIDE 5 MG TAB PO SCH (06:47)
[2021-01-17] MEDS: ACCU-CHEK COMFORT CURVE STRIP VI SCH ×2 (06:48→11:30)
[2021-01-17] MEDS: InsuLIN REG 1unit/0.01ml Soln (100units/ml) SC SCH ×2 (06:48→12:00)
[2021-01-17] MEDS: MORPHINE SULF INJ 2 MG/ML SYRINGE 1ML IV PRN (07:04)
[2021-01-17 08:00] VITALS: BP 165/93
[2021-01-17 09:00] VITALS: BP 165/93
[2021-01-17] MEDS: levoFLOXacin 500MG 100 ML IV SCH (10:09)
[2021-01-17] MEDS: GABAPENTIN 100 MG CAP PO SCH (10:10)
[2021-01-17] MEDS: ATENOLOL 25 MG TAB PO SCH (10:10)
[2021-01-17] MEDS: NIFEdipine ER 30 MG TAB PO SCH (10:10)
[2021-01-17] MEDS: BENAZEPRIL HCL 10 MG TAB PO SCH (10:24)
[2021-01-17 13:00] VITALS: BP 156/96
[2021-01-17 15:23] VITALS: BP 165/93
[2021-01-17 16:00] VITALS: BP 145/81
== END 2021-01-17 16:20 | disposition home health service (06) | DRG 139 ==
LOC: ER 12:16 → EDBD 12:16 → TELE 16:41 → TELE-EAST 18:26
PROVIDERS: ADMIT Internal Medicine; ATTEND Internal Medicine
PROC: 5A09357 Assistance with Respiratory Ventilation, Less than 24 Consecutive Hours, Continuous Positive Airway Pressure (ICD-10-PCS; principal; 2021-01-15)
PROC: 5A09357 Assistance with Respiratory Ventilation, Less than 24 Consecutive Hours, Continuous Positive Airway Pressure (ICD-10-PCS; 2021-01-16)
PROC: 5A09357 Assistance with Respiratory Ventilation, Less than 24 Consecutive Hours, Continuous Positive Airway Pressure (ICD-10-PCS; 2021-01-17)
DX: J18.9 Pneumonia, unspecified organism (principal); I50.43 Acute on chronic combined systolic (congestive) and diastolic (congestive) heart failure; J96.22 Acute and chronic respiratory failure with hypercapnia; J96.21 Acute and chronic respiratory failure with hypoxia; I11.0 Hypertensive heart disease with heart failure; E44.0 Moderate protein-calorie malnutrition; J44.1 Chronic obstructive pulmonary disease with (acute) exacerbation; J98.11 Atelectasis; Z68.43 Body mass index [BMI] 50.0-59.9, adult; E11.9 Type 2 diabetes mellitus without complications; K21.9 Gastro-esophageal reflux disease without esophagitis; E66.2 Morbid (severe) obesity with alveolar hypoventilation; F17.210 Nicotine dependence, cigarettes, uncomplicated; I27.21 Secondary pulmonary arterial hypertension; J44.0 Chronic obstructive pulmonary disease with (acute) lower respiratory infection; Z20.822 Contact with and (suspected) exposure to COVID-19; Z79.51 Long term (current) use of inhaled steroids; Z79.84 Long term (current) use of oral hypoglycemic drugs; Z79.899 Other long term (current) drug therapy; Z82.49 Family history of ischemic heart disease and other diseases of the circulatory system; Z83.3 Family history of diabetes mellitus; Z90.710 Acquired absence of both cervix and uterus
CPT/HCPCS: 36415; 36600; 71045; 80048; 80053; 81001; 82805; 82962; 83605; 83735; 83880; 84484; 85025; 87040; 87081; 87426; 93005; 94640; 94660; 96365; 96375; 97110; G0378; J0696; J1815; J1956; J2405

== ENCOUNTER 2021-03-22 13:29 | Inpatient (IN) | payer MEDICAID ==
[~2021-03-22] VITALS: Ht 160 cm; Wt 142.0 kg
[2021-03-22] MEDS ORDERED: IPRATROPIUM BROM 0.5 MG/2.5ML INH SOL NEB ONE (13:45)
[2021-03-22] MEDS ORDERED: methylPREDNISolone SOD SUCC 125 MG/2 ML VL IV ONE (13:45)
[2021-03-22] MEDS ORDERED: ALBUTEROL SULF 2.5 MG/0.5ML(0.5%) NEB SOLN NEB ONE (13:45)
[2021-03-22 15:14] LABS: Basophils # (auto) 0 10 ^3/uL (0-0.2); Basophils % (auto) 0.3 % (0.0-2.0); Eosinophils # (auto) 0.1 10 ^3/uL (0-0.8); Eosinophils % (auto) 1.2 % (0.0-7.0); Hematocrit 42.3 % (36.0-46.0); Hemoglobin 13.8 g/dL (12.2-16.2); Lymphocytes # (auto) 1.2 10 ^3/uL (0.4-5.4); Lymphocytes % (auto) 14.3 % (10.0-50.0); Mean Corpuscular Hemoglobin 29.1 pg (28.0-32.0); Mean Corpuscular Hgb Conc. 32.6 g/dL (32.0-36.0); Mean Corpuscular Volume 89.2 fL (80.0-100.0); Monocytes # (auto) 0.6 10 ^3/uL (0-1.3); Monocytes % (auto) 6.7 % (0.0-12.0); Neutrophils # (auto) 6.4 10 ^3/uL (1.6-8.6); Neutrophils % (auto) 77.5 % (37.0-80.0); Nucleated Red Blood Cells % 0.3 %; Platelet Count (auto) 199 10^3/uL (140-450); Red Blood Cells 4.75 10^6/uL (4.0-5.20); White Blood Cell 8.3 10^3/uL (4.4-10.8)
[2021-03-22 15:37] LABS: Albumin 3.1 g/dL (3.4-5.0); Anion Gap 0 (5-15); Blood Urea Nitrogen 13 mg/dL (7-18); Chloride 98 mmol/L (98-107); Glucose 147 mg/dL (74-106); Potassium 4.1 mmol/L (3.5-5.1); Sodium 140 mmol/L (136-145)
[2021-03-22 15:40] LABS: Alanine Aminotransferase 26 U/L (13-56); Aspartate Aminotransferase 17 U/L (15-37); BUN/Creatinine Ratio 18.3; GFR African American 108 mL/min; GFR Non-African American 89 mL/min
[2021-03-22 15:45] LABS: Alkaline Phosphatase 91 U/L (45-117); Bilirubin, Total 0.8 mg/dL (0.2-1.0); Total Protein 7.9 g/dL (6.4-8.2)
[2021-03-22 15:48] LABS: Carbon Dioxide 42 mmol/L (21-32)
[2021-03-22] MEDS ORDERED: HYDROcodone-ACET 5/325MG TAB PO ONE (16:00)
[2021-03-22] MEDS ORDERED: NITROGLYCERIN 0.4 MG SL TAB SL PRN (17:15)
[2021-03-22] MEDS ORDERED: ALBUTEROL SULF 2.5 MG/0.5ML(0.5%) NEB SOLN NEB SCH (17:15)
[2021-03-22] MEDS ORDERED: IPRATROPIUM BROM 0.5 MG/2.5ML INH SOL NEB SCH (17:15)
[2021-03-22] MEDS: IPRATROPIUM BROM 0.5 MG/2.5ML INH SOL NEB SCH (18:14)
[2021-03-22] MEDS: ALBUTEROL SULF 2.5 MG/0.5ML(0.5%) NEB SOLN NEB SCH (18:14)
[2021-03-22] MEDS ORDERED: FURO40TA4 PO (18:45)
[2021-03-22] MEDS ORDERED: FLUT500M2 INH (18:45)
[2021-03-22] MEDS ORDERED: ATOR20TA50 PO (18:45)
[2021-03-22] MEDS ORDERED: NIFE1TAB30 PO (18:45)
[2021-03-22] MEDS ORDERED: METF-372 PO (18:45)
[2021-03-22] MEDS ORDERED: BENA10TA9 PO (18:45)
[2021-03-22] MEDS ORDERED: CLON0.2T PO (18:45)
[2021-03-22] MEDS ORDERED: GABA100C9 PO (18:45)
[2021-03-22] MEDS ORDERED: TIZA4CAP PO (18:45)
[2021-03-22] MEDS ORDERED: NORCO PO (18:45)
[2021-03-22] MEDS ORDERED: ATEN100T PO (18:45)
[2021-03-22] MEDS ORDERED: CHOL20007 PO (18:45)
[2021-03-22] MEDS ORDERED: GLIP5TAB12 PO (18:45)
[2021-03-22] MEDS ORDERED: DEXTROSE (50%) 50ML SYRG IV PRN (19:15)
[2021-03-22 20:37] VITALS: BP 167/82
[2021-03-22] MEDS: levoFLOXacin 500MG 100 ML IV SCH (21:55)
[2021-03-22] MEDS ORDERED: GABAPENTIN 100 MG CAP PO SCH (22:00)
[2021-03-22] MEDS ORDERED: ATORVASTATIN 20 MG TAB PO SCH (22:00)
[2021-03-22] MEDS: methylPREDNISolone SOD SUCC 40 MG/ML VL IV SCH (22:31)
[2021-03-22] MEDS: BENAZEPRIL HCL 10 MG TAB PO SCH (22:32)
[2021-03-22] MEDS: HYDROcodone-ACET 10/325MG TAB PO PRN (22:46)
[2021-03-22] MEDS: ACCU-CHEK COMFORT CURVE STRIP VI SCH (22:46)
[2021-03-22] MEDS: InsuLIN REG 1unit/0.01ml Soln (100units/ml) SC SCH (22:46)
[2021-03-22] MEDS: hydrALAZINE HCL 20 MG/ML VL IV PRN (22:47)
[2021-03-23] VITALS (7 sets, daily range): BP systolic 149–168; BP diastolic 70–99
[2021-03-23] MEDS ORDERED: METOPROLOL TARTRATE 1MG/1ML-5ML VIAL IV PRN (01:00)
[2021-03-23] MEDS: HYDROcodone-ACET 10/325MG TAB PO PRN ×2 (05:11→14:09)
[2021-03-23] MEDS: hydrALAZINE HCL 20 MG/ML VL IV PRN ×2 (05:12→16:57)
[2021-03-23] MEDS: ACCU-CHEK COMFORT CURVE STRIP VI SCH ×3 (06:48→16:57)
[2021-03-23] MEDS: InsuLIN REG 1unit/0.01ml Soln (100units/ml) SC SCH ×3 (06:48→17:08)
[2021-03-23] MEDS: ALBUTEROL SULF 2.5 MG/0.5ML(0.5%) NEB SOLN NEB SCH ×3 (06:53→18:40)
[2021-03-23] MEDS: IPRATROPIUM BROM 0.5 MG/2.5ML INH SOL NEB SCH ×3 (06:53→18:39)
[2021-03-23] MEDS: levoFLOXacin 500MG 100 ML IV SCH (08:56)
[2021-03-23] MEDS: methylPREDNISolone SOD SUCC 40 MG/ML VL IV SCH (08:56)
[2021-03-23] MEDS ORDERED: PNEUMOCOCCAL VACC POLYS 25 MCG/0.5 ML VIAL IM ONE (09:00)
[2021-03-23] MEDS: BENAZEPRIL HCL 10 MG TAB PO SCH (09:58)
[2021-03-23] MEDS ORDERED: NIFEdipine ER 30 MG TAB PO SCH (10:00)
[2021-03-23] MEDS ORDERED: FUROSEMIDE 40 MG TAB PO SCH (10:00)
[2021-03-23] MEDS ORDERED: ATENOLOL 25 MG TAB PO SCH (10:00)
[2021-03-23] MEDS ORDERED: LEVO500T31 PO (10:21)
[2021-03-23] MEDS ORDERED: ALBUAER3 IN (10:21)
[2021-03-23] MEDS ORDERED: IPRIH IN (10:21)
[2021-03-23] MEDS ORDERED: PRED20TA2 PO (10:21)
[2021-03-23 11:11] LABS: Calcium 9.5 mg/dL (8.5-10.1); Potassium 4.1 mmol/L (3.5-5.1)
== END 2021-03-23 19:36 | disposition home or self-care (01) | DRG 133 ==
LOC: EDBD 13:29 → EDUNIT# 13:29 → ER 13:29 → TELE 17:01 → TELE-WESTW 03-23 01:22
PROVIDERS: ADMIT Internal Medicine; ATTEND Internal Medicine
DX: J96.21 Acute and chronic respiratory failure with hypoxia (principal); I50.33 Acute on chronic diastolic (congestive) heart failure; I27.21 Secondary pulmonary arterial hypertension; E11.40 Type 2 diabetes mellitus with diabetic neuropathy, unspecified; E44.1 Mild protein-calorie malnutrition; E11.65 Type 2 diabetes mellitus with hyperglycemia; J44.1 Chronic obstructive pulmonary disease with (acute) exacerbation; I11.0 Hypertensive heart disease with heart failure; E66.01 Morbid (severe) obesity due to excess calories; E78.5 Hyperlipidemia, unspecified; Z20.822 Contact with and (suspected) exposure to COVID-19; Z68.43 Body mass index [BMI] 50.0-59.9, adult; Z82.49 Family history of ischemic heart disease and other diseases of the circulatory system; Z83.3 Family history of diabetes mellitus; Z90.710 Acquired absence of both cervix and uterus; Z99.81 Dependence on supplemental oxygen
CPT/HCPCS: 36415; 36600; 71045; 80048; 80053; 82805; 82962; 83880; 84484; 85025; 87426; 94640; 96365; 96375; G0378; J1815; J1956

== ENCOUNTER 2021-03-29 15:37 | Inpatient (IN) | payer MEDICAID ==
[~2021-03-29] VITALS: Ht 165.1 cm; Wt 136.0 kg
[~2021-03-29 15:37] MED LIST changes: -ALBU18 IN; +ALBUAER3 IN; +ATEN100T PO; -ATEN50TA PO; +BENA10TA9 PO; -BENA40TA8 PO; +CHOL20007 PO; -FLUT500M2 IN; +FLUT500M2 INH; -GAB100C PO; +GABA100C9 PO; -HYDR-4072 PO; +IPRIH IN; +LEVO500T31 PO; -METF-370 PO; +METF-372 PO; +NORCO PO; -POTA1TAB64 PO; +PRED20TA2 PO; +TIZA4CAP PO; -TIZA4TAB3 PO
[2021-03-29 17:01] LABS: Basophils # (auto) 0 10 ^3/uL (0-0.2); Basophils % (auto) 0.3 % (0.0-2.0); Eosinophils # (auto) 0 10 ^3/uL (0-0.8); Eosinophils % (auto) 0.2 % (0.0-7.0); Hematocrit 42.1 % (36.0-46.0); Hemoglobin 13.6 g/dL (12.2-16.2); Lymphocytes # (auto) 1.4 10 ^3/uL (0.4-5.4); Lymphocytes % (auto) 19.3 % (10.0-50.0); Mean Corpuscular Hemoglobin 28.8 pg (28.0-32.0); Mean Corpuscular Hgb Conc. 32.2 g/dL (32.0-36.0); Mean Corpuscular Volume 89.3 fL (80.0-100.0); Monocytes # (auto) 0.7 10 ^3/uL (0-1.3); Monocytes % (auto) 10.3 % (0.0-12.0); Neutrophils % (auto) 69.9 % (37.0-80.0); Nucleated Red Blood Cells % 0.2 %; Platelet Count (auto) 205 10^3/uL (140-450); Red Blood Cells 4.71 10^6/uL (4.0-5.20); Red Cell Distribution Width 15.8 % (11.8-14.3); White Blood Cell 7.2 10^3/uL (4.4-10.8)
[2021-03-29 17:14] LABS: Blood Urea Nitrogen 18 mg/dL (7-18); Calcium 8.5 mg/dL (8.5-10.1); Chloride 95 mmol/L (98-107); Glucose 219 mg/dL (74-106); Potassium 3.9 mmol/L (3.5-5.1); Sodium 140 mmol/L (136-145)
[2021-03-29 17:21] LABS: Alanine Aminotransferase 25 U/L (13-56); Alkaline Phosphatase 76 U/L (45-117); Aspartate Aminotransferase 18 U/L (15-37); Bilirubin, Total 0.6 mg/dL (0.2-1.0); GFR African American 151 mL/min; GFR Non-African American 125 mL/min; Total Protein 7.4 g/dL (6.4-8.2)
[2021-03-29 17:40] LABS: Anion Gap 9 (5-15); Carbon Dioxide 36 mmol/L (21-32)
[2021-03-29] MEDS ORDERED: HYDROcodone-ACET 5/325MG TAB PO PRN (19:00)
[2021-03-29] MEDS ORDERED: NITROGLYCERIN 0.4 MG SL TAB SL PRN (19:00)
[2021-03-29] MEDS ORDERED: DEXTROSE (50%) 50ML SYRG IV ONE (19:00)
[2021-03-29] MEDS ORDERED: MORPHINE SULF INJ 2 MG/ML SYRINGE 1ML IV PRN (19:00)
[2021-03-29] MEDS ORDERED: ACETAMINOPHEN 325 MG TAB PO PRN (19:00)
[2021-03-29 20:22] VITALS: BP 170/93
[2021-03-29 20:32] VITALS: BP 170/93
[2021-03-29] MEDS ORDERED: InsuLIN REG 1unit/0.01ml Soln (100units/ml) SC ONE (22:00)
[2021-03-29] MEDS ORDERED: ACCU-CHEK COMFORT CURVE STRIP VI ONE (22:00)
[2021-03-29] MEDS: ENOXAPARIN SOD 40 MG/0.4 ML SYRINGE SC SCH (22:01)
[2021-03-29] MEDS: FAMOTIDINE 20 MG TAB PO SCH (22:04)
[2021-03-29 22:18] VITALS: BP 194/113
[2021-03-30] VITALS (10 sets, daily range): BP systolic 112–177; BP diastolic 63–94
[2021-03-30] MEDS: MORPHINE SULF INJ 2 MG/ML SYRINGE 1ML IV PRN ×3 (03:34→22:20)
[2021-03-30] MEDS: ONDANSETRON HCL 4 MG/2 ML VIAL IV PRN ×3 (04:00→22:20)
[2021-03-30 07:46] LABS: Basophils # (auto) 0 10 ^3/uL (0-0.2); Basophils % (auto) 0.3 % (0.0-2.0); Eosinophils # (auto) 0 10 ^3/uL (0-0.8); Eosinophils % (auto) 0.3 % (0.0-7.0); Hemoglobin 13.7 g/dL (12.2-16.2); Lymphocytes # (auto) 1.6 10 ^3/uL (0.4-5.4); Lymphocytes % (auto) 19.1 % (10.0-50.0); Mean Corpuscular Hemoglobin 28.1 pg (28.0-32.0); Mean Corpuscular Hgb Conc. 31.2 g/dL (32.0-36.0); Mean Corpuscular Volume 89.9 fL (80.0-100.0); Monocytes # (auto) 0.9 10 ^3/uL (0-1.3); Monocytes % (auto) 10.2 % (0.0-12.0); Neutrophils # (auto) 5.9 10 ^3/uL (1.6-8.6); Neutrophils % (auto) 70.1 % (37.0-80.0); Nucleated Red Blood Cells % 0.4 %; Platelet Count (auto) 197 10^3/uL (140-450); Red Blood Cells 4.89 10^6/uL (4.0-5.20); White Blood Cell 8.4 10^3/uL (4.4-10.8)
[2021-03-30 08:15] LABS: Albumin 2.9 g/dL (3.4-5.0); Calcium 8.5 mg/dL (8.5-10.1); Magnesium 1.9 mg/dL (1.6-2.6); Potassium 3.6 mmol/L (3.5-5.1)
[2021-03-30 08:20] LABS: BUN/Creatinine Ratio 29.8; Bilirubin, Total 0.8 mg/dL (0.2-1.0)
[2021-03-30] MEDS ORDERED: IPRATROPIUM BROM 0.5 MG/2.5ML INH SOL NEB SCH (10:00)
[2021-03-30] MEDS ORDERED: ALBUTEROL SULF 2.5 MG/0.5ML(0.5%) NEB SOLN NEB SCH (10:00)
[2021-03-30] MEDS: FUROSEMIDE 40 MG/4 ML VIAL IV SCH ×2 (10:04→10:06)
[2021-03-30] MEDS: FAMOTIDINE 20 MG TAB PO SCH ×2 (10:05→22:20)
[2021-03-30] MEDS: methylPREDNISolone SOD SUCC 40 MG/ML VL IV SCH ×2 (14:45→22:20)
[2021-03-30] MEDS: ENOXAPARIN SOD 40 MG/0.4 ML SYRINGE SC SCH (22:20)
[2021-03-31 00:10] VITALS: BP 156/112
[2021-03-31 02:00] VITALS: BP 183/109
[2021-03-31 04:16] VITALS: BP 196/91
[2021-03-31] MEDS: ONDANSETRON HCL 4 MG/2 ML VIAL IV PRN (04:19)
[2021-03-31] MEDS: MORPHINE SULF INJ 2 MG/ML SYRINGE 1ML IV PRN ×3 (04:19→17:49)
[2021-03-31] MEDS: hydrALAZINE HCL 20 MG/ML VL IV PRN ×2 (05:13→22:27)
[2021-03-31] MEDS: methylPREDNISolone SOD SUCC 40 MG/ML VL IV SCH ×3 (05:14→22:26)
[2021-03-31 07:48] LABS: Basophils # (auto) 0 10 ^3/uL (0-0.2); Basophils % (auto) 0.2 % (0.0-2.0); Eosinophils # (auto) 0 10 ^3/uL (0-0.8); Hematocrit 41.8 % (36.0-46.0); Hemoglobin 13.4 g/dL (12.2-16.2); Lymphocytes # (auto) 0.3 10 ^3/uL (0.4-5.4); Lymphocytes % (auto) 5.4 % (10.0-50.0); Mean Corpuscular Hemoglobin 28.6 pg (28.0-32.0); Mean Corpuscular Hgb Conc. 32.1 g/dL (32.0-36.0); Monocytes # (auto) 0.3 10 ^3/uL (0-1.3); Monocytes % (auto) 4.1 % (0.0-12.0); Neutrophils # (auto) 5.7 10 ^3/uL (1.6-8.6); Neutrophils % (auto) 90.3 % (37.0-80.0); Nucleated Red Blood Cells % 0.4 %; Platelet Count (auto) 197 10^3/uL (140-450); Red Cell Distribution Width 15.4 % (11.8-14.3); White Blood Cell 6.3 10^3/uL (4.4-10.8)
[2021-03-31 08:02] LABS: BUN/Creatinine Ratio 30.2; Blood Urea Nitrogen 19 mg/dL (7-18); Calcium 8.7 mg/dL (8.5-10.1); Chloride 94 mmol/L (98-107); GFR African American 124 mL/min; GFR Non-African American 102 mL/min; Magnesium 1.7 mg/dL (1.6-2.6); Potassium 4.1 mmol/L (3.5-5.1)
[2021-03-31 08:04] LABS: Glucose 268 mg/dL (74-106)
[2021-03-31 08:32] LABS: Carbon Dioxide 50 mmol/L (21-32)
[2021-03-31 08:36] LABS: Sodium 141 mmol/L (136-145)
[2021-03-31 09:52] VITALS: BP 157/90
[2021-03-31] MEDS: FAMOTIDINE 20 MG TAB PO SCH ×2 (11:00→22:27)
[2021-03-31] MEDS: FUROSEMIDE 40 MG/4 ML VIAL IV SCH (11:06)
[2021-03-31] MEDS: ENOXAPARIN SOD 40 MG/0.4 ML SYRINGE SC SCH (21:06)
[2021-03-31 22:10] VITALS: BP 169/82
[2021-03-31 23:00] VITALS: BP 169/82
[2021-04-01 00:40] VITALS: BP 145/80
[2021-04-01] MEDS: methylPREDNISolone SOD SUCC 40 MG/ML VL IV SCH ×2 (05:19→13:26)
[2021-04-01 05:52] VITALS: BP 168/90
[2021-04-01] MEDS: hydrALAZINE HCL 20 MG/ML VL IV PRN (05:52)
[2021-04-01 06:32] VITALS: BP 155/79
[2021-04-01 07:18] LABS: Basophils # (auto) 0 10 ^3/uL (0-0.2); Basophils % (auto) 0.1 % (0.0-2.0); Eosinophils # (auto) 0 10 ^3/uL (0-0.8); Hematocrit 42.2 % (36.0-46.0); Hemoglobin 14.1 g/dL (12.2-16.2); Lymphocytes # (auto) 0.7 10 ^3/uL (0.4-5.4); Lymphocytes % (auto) 6.8 % (10.0-50.0); Mean Corpuscular Hemoglobin 29.4 pg (28.0-32.0); Mean Corpuscular Hgb Conc. 33.3 g/dL (32.0-36.0); Mean Corpuscular Volume 88.3 fL (80.0-100.0); Monocytes # (auto) 0.5 10 ^3/uL (0-1.3); Monocytes % (auto) 5.3 % (0.0-12.0); Neutrophils # (auto) 8.8 10 ^3/uL (1.6-8.6); Neutrophils % (auto) 87.8 % (37.0-80.0); Nucleated Red Blood Cells % 0.4 %; Platelet Count (auto) 214 10^3/uL (140-450); Red Blood Cells 4.79 10^6/uL (4.0-5.20); Red Cell Distribution Width 15.3 % (11.8-14.3)
[2021-04-01 07:39] LABS: Chloride 91 mmol/L (98-107); Potassium 4.7 mmol/L (3.5-5.1); Sodium 138 mmol/L (136-145)
[2021-04-01 07:43] LABS: BUN/Creatinine Ratio 42.1; Blood Urea Nitrogen 24 mg/dL (7-18); GFR African American 139 mL/min; GFR Non-African American 115 mL/min; Glucose 184 mg/dL (74-106); Magnesium 2.2 mg/dL (1.6-2.6)
[2021-04-01 08:00] VITALS: BP 149/83
[2021-04-01 08:22] LABS: Carbon Dioxide 50 mmol/L (21-32)
[2021-04-01] MEDS: FAMOTIDINE 20 MG TAB PO SCH (09:33)
[2021-04-01] MEDS: FUROSEMIDE 40 MG/4 ML VIAL IV SCH (09:34)
[2021-04-01] MEDS ORDERED: IPRATROPIUM BROM 0.5 MG/2.5ML INH SOL NEB SCH ×2 (11:00→14:00)
[2021-04-01] MEDS ORDERED: ALBUTEROL SULF 2.5 MG/0.5ML(0.5%) NEB SOLN NEB SCH ×2 (11:00→14:00)
[2021-04-01 12:00] VITALS: BP 142/87
[2021-04-01] MEDS: MORPHINE SULF INJ 2 MG/ML SYRINGE 1ML IV PRN (12:54)
[2021-04-01 14:03] VITALS: BP 142/87
== END 2021-04-01 15:50 | disposition home or self-care (01) | DRG 140 ==
LOC: EDBD 15:37 → ER 15:40 → TELE 18:51 → TELE-CENTR 03-31 21:58
PROVIDERS: ADMIT Internal Medicine; ATTEND Internal Medicine
PROC: 5A09357 Assistance with Respiratory Ventilation, Less than 24 Consecutive Hours, Continuous Positive Airway Pressure (ICD-10-PCS; principal; 2021-03-29)
PROC: 5A09357 Assistance with Respiratory Ventilation, Less than 24 Consecutive Hours, Continuous Positive Airway Pressure (ICD-10-PCS; 2021-03-30)
DX: J44.1 Chronic obstructive pulmonary disease with (acute) exacerbation (principal); J96.21 Acute and chronic respiratory failure with hypoxia; E87.4 Mixed disorder of acid-base balance; I11.0 Hypertensive heart disease with heart failure; E11.40 Type 2 diabetes mellitus with diabetic neuropathy, unspecified; E66.2 Morbid (severe) obesity with alveolar hypoventilation; Z68.42 Body mass index [BMI] 45.0-49.9, adult; F17.210 Nicotine dependence, cigarettes, uncomplicated; I25.10 Atherosclerotic heart disease of native coronary artery without angina pectoris; J96.22 Acute and chronic respiratory failure with hypercapnia; J98.11 Atelectasis; Z20.822 Contact with and (suspected) exposure to COVID-19; Z79.4 Long term (current) use of insulin; Z79.51 Long term (current) use of inhaled steroids; Z82.49 Family history of ischemic heart disease and other diseases of the circulatory system; Z83.3 Family history of diabetes mellitus; Z90.710 Acquired absence of both cervix and uterus; Z91.19 Patient's noncompliance with other medical treatment and regimen; Z99.81 Dependence on supplemental oxygen; K21.9 Gastro-esophageal reflux disease without esophagitis; Z79.899 Other long term (current) drug therapy; Z71.6 Tobacco abuse counseling; I50.32 Chronic diastolic (congestive) heart failure
CPT/HCPCS: 36415; 36600; 51702; 71045; 80048; 80053; 82805; 82962; 83735; 83880; 84484; 85025; 87426; 93005; 94640; 94660; 99291; G0378; J2405

== ENCOUNTER 2021-05-07 11:46 | Inpatient (IN) | payer MEDICAID ==
[~2021-05-07] VITALS: Ht 160 cm; Wt 139.0 kg
[~2021-05-07 11:46] MED LIST changes: +BENA10TA15 PO; -BENA10TA9 PO; +HYDR-4833 PO; -LEVO500T31 PO; -NORCO PO
[2021-05-07 12:14] LABS: Basophils # (auto) 0.1 10 ^3/uL (0-0.2); Eosinophils # (auto) 0.1 10 ^3/uL (0-0.8); Eosinophils % (auto) 0.8 % (0.0-7.0); Hematocrit 41.3 % (36.0-46.0); Hemoglobin 13.4 g/dL (12.2-16.2); Lymphocytes # (auto) 1.3 10 ^3/uL (0.4-5.4); Lymphocytes % (auto) 12.6 % (10.0-50.0); Mean Corpuscular Hemoglobin 29.2 pg (28.0-32.0); Mean Corpuscular Hgb Conc. 32.4 g/dL (32.0-36.0); Mean Corpuscular Volume 90.2 fL (80.0-100.0); Monocytes # (auto) 0.7 10 ^3/uL (0-1.3); Monocytes % (auto) 6.6 % (0.0-12.0); Neutrophils # (auto) 8.3 10 ^3/uL (1.6-8.6); Nucleated Red Blood Cells % 0.8 %; Red Blood Cells 4.58 10^6/uL (4.0-5.20); Red Cell Distribution Width 15.7 % (11.8-14.3); White Blood Cell 10.6 10^3/uL (4.4-10.8)
[2021-05-07] MEDS ORDERED: IPRATROPIUM BROM 0.5 MG/2.5ML INH SOL NEB ONE (12:30)
[2021-05-07] MEDS ORDERED: ALBUTEROL SULF 2.5 MG/0.5ML(0.5%) NEB SOLN NEB ONE ×2 (12:30→14:00)
[2021-05-07] MEDS ORDERED: methylPREDNISolone SOD SUCC 125 MG/2 ML VL IV ONE (12:30)
[2021-05-07] MEDS ORDERED: FUROSEMIDE 40 MG/4 ML VIAL IV ONE (12:30)
[2021-05-07 12:40] LABS: Blood Urea Nitrogen 13 mg/dL (7-18); Calcium 9.3 mg/dL (8.5-10.1); Chloride 97 mmol/L (98-107); Glucose 147 mg/dL (74-106); Magnesium 2.1 mg/dL (1.6-2.6); Potassium 5.2 mmol/L (3.5-5.1); Sodium 138 mmol/L (136-145)
[2021-05-07 12:46] LABS: Alanine Aminotransferase 25 U/L (13-56); Alkaline Phosphatase 84 U/L (45-117); Aspartate Aminotransferase 13 U/L (15-37); Bilirubin, Total 0.7 mg/dL (0.2-1.0); GFR African American 162 mL/min; GFR Non-African American 134 mL/min; Total Protein 7.6 g/dL (6.4-8.2)
[2021-05-07 12:54] LABS: Anion Gap -1 (5-15)
[2021-05-07 12:56] LABS: Carbon Dioxide 42 mmol/L (21-32)
[2021-05-07 13:43] LABS: Urine Amorphous Crystal FEW /hpf (None Seen); Urine Bacteria FEW /hpf (None Seen); Urine Blood Negative /uL (Negative); Urine Hyaline Cast MOD /lpf (0 - 2); Urine Mucus FEW (None Seen); Urine Specific Gravity 1.026 (1.001-1.035); Urine WBC 36 /hpf (0 - 5)
[2021-05-07] MEDS ORDERED: CALCIUM GLUC 1,000mg/50ml-NS 50 ML IV ONE (14:00)
[2021-05-07] MEDS ORDERED: ONDANSETRON HCL 4 MG/2 ML VIAL IV PRN (14:00)
[2021-05-07] MEDS ORDERED: SODIUM ZIRCONIUM CYCL 10 GM PAK PO ONE (14:00)
[2021-05-07] MEDS ORDERED: FUROSEMIDE 20 MG/2 ML VIAL IV ONE (14:00)
[2021-05-07] MEDS ORDERED: SODIUM BICARBONATE 8.4% INJ 50ML SYRINGE IV ONE (14:00)
[2021-05-07] MEDS: MORPHINE SULFATE INJECTION 2 MG/ML SYRG IV PRN (14:25)
[2021-05-07] MEDS ORDERED: ERGOCALCIFEROL 50,000 UNIT(1.25MG) CAP PO SCH (14:30)
[2021-05-07] MEDS: levoFLOXacin 500MG 100 ML IV SCH (14:53)
[2021-05-07 15:20] VITALS: BP 140/72
[2021-05-07] MEDS ORDERED: ERGO1CAP12 PO (16:43)
[2021-05-07] MEDS ORDERED: HYDR-4798 PO (16:43)
[2021-05-07] MEDS ORDERED: GABA100C9 PO (16:44)
[2021-05-07 17:41] VITALS: BP 139/84
[2021-05-07] MEDS ORDERED: IPRATROPIUM BROM 0.5 MG/2.5ML INH SOL NEB PRN (18:15)
[2021-05-07] MEDS ORDERED: ALBUTEROL SULF 2.5 MG/0.5ML(0.5%) NEB SOLN NEB PRN (18:15)
[2021-05-07] MEDS: ALBUTEROL SULF 2.5 MG/0.5ML(0.5%) NEB SOLN NEB SCH (18:38)
[2021-05-07] MEDS: IPRATROPIUM BROM 0.5 MG/2.5ML INH SOL NEB SCH (18:39)
[2021-05-07 20:29] VITALS: BP 135/83
[2021-05-07] MEDS ORDERED: BENAZEPRIL HCL 10 MG TAB PO SCH (22:00)
[2021-05-07] MEDS: FLUTICASONE SALMETEROL PO SCH (22:00)
[2021-05-07] MEDS: methylPREDNISolone SOD SUCC 40 MG/ML VL IV SCH (22:24)
[2021-05-07] MEDS: ATORVASTATIN 20 MG TAB PO SCH (22:25)
[2021-05-07 22:26] VITALS: BP 122/68
[2021-05-08] VITALS (27 sets, daily range): BP systolic 112–175; BP diastolic 56–104
[2021-05-08] MEDS ORDERED: DEXTROSE (50%) 50ML SYRG IV PRN (02:45)
[2021-05-08] MEDS: MORPHINE SULFATE INJECTION 2 MG/ML SYRG IV PRN ×4 (02:59→22:21)
[2021-05-08] MEDS: ACCU-CHEK COMFORT CURVE STRIP VI SCH ×3 (06:17→17:33)
[2021-05-08] MEDS: InsuLIN REG 1unit/0.01ml Soln (100units/ml) SC SCH ×3 (06:21→17:33)
[2021-05-08] MEDS: IPRATROPIUM BROM 0.5 MG/2.5ML INH SOL NEB SCH ×3 (06:38→18:57)
[2021-05-08] MEDS: ALBUTEROL SULF 2.5 MG/0.5ML(0.5%) NEB SOLN NEB SCH ×3 (06:38→18:57)
[2021-05-08 08:12] LABS: Basophils # (auto) 0 10 ^3/uL (0-0.2); Basophils % (auto) 0.3 % (0.0-2.0); Eosinophils # (auto) 0 10 ^3/uL (0-0.8); Hematocrit 42.2 % (36.0-46.0); Hemoglobin 13.5 g/dL (12.2-16.2); Lymphocytes # (auto) 0.7 10 ^3/uL (0.4-5.4); Lymphocytes % (auto) 8.2 % (10.0-50.0); Mean Corpuscular Hemoglobin 28.4 pg (28.0-32.0); Monocytes # (auto) 0.3 10 ^3/uL (0-1.3); Monocytes % (auto) 4.1 % (0.0-12.0); Neutrophils # (auto) 6.9 10 ^3/uL (1.6-8.6); Neutrophils % (auto) 87.4 % (37.0-80.0); Nucleated Red Blood Cells % 0.4 %; Red Blood Cells 4.74 10^6/uL (4.0-5.20); Red Cell Distribution Width 15.5 % (11.8-14.3); White Blood Cell 7.9 10^3/uL (4.4-10.8)
[2021-05-08 08:34] LABS: BUN/Creatinine Ratio 31.1; Calcium 9.4 mg/dL (8.5-10.1); Potassium 4.8 mmol/L (3.5-5.1)
[2021-05-08] MEDS: FLUTICASONE SALMETEROL PO SCH ×2 (10:00→22:00)
[2021-05-08] MEDS: FUROSEMIDE 40 MG TAB PO SCH (10:14)
[2021-05-08] MEDS: levoFLOXacin 500MG 100 ML IV SCH (10:14)
[2021-05-08] MEDS: methylPREDNISolone SOD SUCC 40 MG/ML VL IV SCH ×2 (10:14→22:15)
[2021-05-08] MEDS: NIFEdipine ER 30 MG TAB PO SCH (10:15)
[2021-05-08] MEDS: GABAPENTIN 100 MG CAP PO SCH (10:15)
[2021-05-08] MEDS: ATENOLOL 50 MG TAB PO SCH (10:15)
[2021-05-08] MEDS: ATORVASTATIN 20 MG TAB PO SCH (22:15)
[2021-05-09] VITALS: BP 143/62
[2021-05-09] MEDS: ACCU-CHEK COMFORT CURVE STRIP VI SCH ×3 (00:10→12:03)
[2021-05-09] MEDS: InsuLIN REG 1unit/0.01ml Soln (100units/ml) SC SCH ×3 (00:15→12:04)
[2021-05-09] MEDS: IPRATROPIUM BROM 0.5 MG/2.5ML INH SOL NEB SCH ×2 (00:57→07:19)
[2021-05-09] MEDS: ALBUTEROL SULF 2.5 MG/0.5ML(0.5%) NEB SOLN NEB SCH ×2 (00:57→07:19)
[2021-05-09] MEDS: MORPHINE SULFATE INJECTION 2 MG/ML SYRG IV PRN ×2 (04:19→16:28)
[2021-05-09 05:00] VITALS: BP 154/84
[2021-05-09 09:00] VITALS: BP 132/82
[2021-05-09] MEDS: ATENOLOL 50 MG TAB PO SCH (10:00)
[2021-05-09] MEDS: GABAPENTIN 100 MG CAP PO SCH (10:00)
[2021-05-09] MEDS: FUROSEMIDE 40 MG TAB PO SCH (10:00)
[2021-05-09] MEDS: levoFLOXacin 500MG 100 ML IV SCH (10:00)
[2021-05-09] MEDS: NIFEdipine ER 30 MG TAB PO SCH (10:00)
[2021-05-09] MEDS: methylPREDNISolone SOD SUCC 40 MG/ML VL IV SCH (10:00)
[2021-05-09 13:00] VITALS: BP 165/98
[2021-05-09] MEDS ORDERED: ERGOCALCIFEROL 50,000 UNIT(1.25MG) CAP PO SCH (16:00)
[2021-05-09] MEDS ORDERED: LEVO500T31 PO (16:16)
[2021-05-09] MEDS ORDERED: PRED20TA2 PO (16:16)
[2021-05-09 16:59] VITALS: BP 140/75
[2021-05-09 18:00] VITALS: BP 132/82
[2021-05-09] MEDS ORDERED: BUDESONIDE (INHALATION) 0.5 MG/2 ML NEB NEB SCH (22:00)
== END 2021-05-09 19:00 | disposition home or self-care (01) | DRG 194 ==
LOC: ER 11:46 → EDBD 11:46 → TELE 13:46 → ICU WEST 05-08 07:42 → TELE-WESTW 05-09 00:27
PROVIDERS: ADMIT Internal Medicine; ATTEND Internal Medicine
PROC: 5A09357 Assistance with Respiratory Ventilation, Less than 24 Consecutive Hours, Continuous Positive Airway Pressure (ICD-10-PCS; principal; 2021-05-07)
DX: I11.0 Hypertensive heart disease with heart failure (principal); J96.21 Acute and chronic respiratory failure with hypoxia; Z99.11 Dependence on respirator [ventilator] status; J44.1 Chronic obstructive pulmonary disease with (acute) exacerbation; E11.40 Type 2 diabetes mellitus with diabetic neuropathy, unspecified; E78.5 Hyperlipidemia, unspecified; Z20.822 Contact with and (suspected) exposure to COVID-19; E66.2 Morbid (severe) obesity with alveolar hypoventilation; Z68.44 Body mass index [BMI] 60.0-69.9, adult; Z82.49 Family history of ischemic heart disease and other diseases of the circulatory system; Z83.3 Family history of diabetes mellitus; Z90.710 Acquired absence of both cervix and uterus; Z99.81 Dependence on supplemental oxygen; K21.9 Gastro-esophageal reflux disease without esophagitis; J96.22 Acute and chronic respiratory failure with hypercapnia; Z79.84 Long term (current) use of oral hypoglycemic drugs; I50.43 Acute on chronic combined systolic (congestive) and diastolic (congestive) heart failure
CPT/HCPCS: 36415; 36600; 71045; 80048; 80053; 81001; 82805; 82962; 83735; 83880; 84484; 85025; 87081; 87426; 93005; 93306; 94640; 94644; 94660; 96365; 96375; 99291; G0378; J1815; J1956; J2405

== ENCOUNTER 2023-11-27 21:45 | Inpatient (IN) | payer MEDICAID ==
[~2023-11-27] VITALS: Ht 165.1 cm; Wt 153.4 kg
[~2023-11-27 21:45] MED LIST changes: +BENA-19 PO; -BENA10TA15 PO; -CHOL20007 PO; +ERGO1CAP12 PO; +GABA-1308 PO; -GABA100C9 PO; +HYDR-4798 PO; -HYDR-4833 PO; +LEVO500T31 PO
[2023-11-27 22:24] LABS: Basophils # (auto) 0 10 ^3/uL (0-0.2); Basophils % (auto) 0.4 % (0.0-2.0); Eosinophils # (auto) 0.1 10 ^3/uL (0-0.8); Eosinophils % (auto) 1.5 % (0.0-7.0); Hematocrit 40.9 % (36.0-46.0); Hemoglobin 12.9 g/dL (12.2-16.2); Lymphocytes # (auto) 1.5 10 ^3/uL (0.4-5.4); Lymphocytes % (auto) 18.3 % (10.0-50.0); Mean Corpuscular Hemoglobin 27.6 pg (28.0-32.0); Mean Corpuscular Hgb Conc. 31.5 g/dL (32.0-36.0); Mean Corpuscular Volume 87.7 fL (80.0-100.0); Monocytes # (auto) 0.6 10 ^3/uL (0-1.3); Monocytes % (auto) 7.7 % (0.0-12.0); Neutrophils % (auto) 72.1 % (37.0-80.0); Nucleated Red Blood Cells % 0.1 %; Red Blood Cells 4.66 10^6/uL (4.0-5.20); Red Cell Distribution Width 14.7 % (11.8-14.3); White Blood Cell 8.4 10^3/uL (4.4-10.8)
[2023-11-27 22:44] LABS: Alanine Aminotransferase 26 U/L (7-40); Albumin 4.1 g/dL (3.2-4.8); Alkaline Phosphatase 81 U/L (46-116); Anion Gap 3 (5-15); Aspartate Aminotransferase 25 U/L (13-40); BUN/Creatinine Ratio 27.2 (10.0-20.0); Bilirubin, Total 0.4 mg/dL (0.2-1.0); Blood Urea Nitrogen 22 mg/dL (9-23); Carbon Dioxide 38 mmol/L (20-30); Chloride 102 mmol/L (98-107); Glucose 151 mg/dL (74-106); Potassium 4.4 mmol/L (3.5-5.1); Sodium 143 mmol/L (136-145)
[2023-11-28] MEDS: IPRATROPIUM BROM 0.5 MG/2.5ML INH SOL HHN ONE (02:12)
[2023-11-28] MEDS: ALBUTEROL SULF 2.5 MG/0.5ML(0.5%) NEB SOLN HHN ONE (02:12)
[2023-11-28] MEDS: levoFLOXacin 500 MG TAB PO ONE (02:37)
[2023-11-28] MEDS: ASPirin 81 mg TAB PO ONE (02:37)
[2023-11-28] MEDS: ACETAMINOPHEN 325 MG TAB PO ONE (02:37)
[2023-11-28] MEDS: methylPREDNISolone SOD SUCC 125 MG/2 ML VL IV ONE (02:37)
[2023-11-28] MEDS: ONDANSETRON HCL 4 MG/2 ML VIAL IV ONE (02:42)
[2023-11-28] MEDS: MORPHINE SULFATE 4 MG/ML SYR/VIAL IV PRN (02:43)
[2023-11-28] MEDS: FUROSEMIDE 40 MG/4 ML VIAL IV ONE (02:43)
[2023-11-28 03:53] LABS: INR 0.98 (0.9-1.15); Partial Thromboplastin Time 26.6 SEC (24.5-34.5); Prothrombin Time 10.3 sec (9.3-11.8)
[2023-11-28 04:50] VITALS: PULSE 77; RESP 18; O2SAT 94
[2023-11-28] MEDS ORDERED: DEXTROSE (50%) 50ML SYRG IV PRN (06:45)
[2023-11-28] MEDS ORDERED: NITROGLYCERIN 0.4 MG SL TAB SL PRN (06:45)
[2023-11-28] MEDS ORDERED: MORPHINE SULFATE INJ 2 MG/ml SYRG IV PRN (06:45)
[2023-11-28] MEDS: InsuLIN REG 1unit/0.01ml Soln (100units/ml) SC SCH (07:08)
[2023-11-28] MEDS: ACCU-CHEK COMFORT CURVE STRIP VI SCH (07:08)
[2023-11-28 08:28] LABS: COVID19 ANTIGEN SOFIA FIA NEGATIVE (NEGATIVE); Rapid Influenza A Negative (Negative); Rapid Influenza B Negative (Negative)
[2023-11-28] MEDS: cefTRIAXone 1GM/50ML D5W 50 ML IV SCH (09:28)
[2023-11-28] MEDS: FUROSEMIDE 40 MG TAB PO SCH (10:45)
[2023-11-28] MEDS: AZITHROMYCIN 500MG/ 250ML 250 ML IV SCH (10:45)
[2023-11-28] MEDS: cloNIDine HCL 0.1 MG TAB PO SCH (10:46)
[2023-11-28] MEDS: ONDANSETRON HCL 4 MG/2 ML VIAL IV PRN (10:46)
[2023-11-28] MEDS: ATENOLOL 50 MG TAB PO SCH (10:47)
[2023-11-28] MEDS: ENOXAPARIN SOD 40 MG/0.4 ML SYRINGE SC SCH (10:47)
[2023-11-28] MEDS: NIFEdipine ER 30 MG TAB PO SCH (10:49)
[2023-11-28 12:03] VITALS: BP 186/99; PULSE 75; RESP 22; TEMP 98.1; O2SAT 96
[2023-11-28 12:04] LABS: Urine Bacteria NONE SEEN /hpf (None Seen); Urine Blood TRACE /uL (Negative); Urine Clarity Clear (Clear); Urine Color Yellow (Yellow); Urine Hyaline Cast FEW /lpf (0 - 2); Urine Mucus FEW (None Seen); Urine Protein, UAD 1+ (Negative); Urine Specific Gravity 1.032 (1.001-1.035); Urine Urobilinogen Normal (Negative); Urine WBC 2 /hpf (0 - 5); Urine pH 5.5 (5.0-8.0)
[2023-11-28] MEDS: GABAPENTIN 100 MG CAP PO SCH (13:41)
[2023-11-28 16:29] VITALS: PULSE 82; RESP 16; O2SAT 96
[2023-11-28 19:25] VITALS: PULSE 75; RESP 19; O2SAT 92
[2023-11-28 21:27] VITALS: PULSE 76; RESP 22; O2SAT 90
[2023-11-28] MEDS: ALBUTEROL SULF 2.5 MG/0.5ML(0.5%) NEB SOLN NEB PRN (21:27)
[2023-11-28] MEDS: IPRATROPIUM BROM 0.5 MG/2.5ML INH SOL NEB PRN (21:27)
[2023-11-28 21:33] VITALS: PULSE 76; RESP 22; O2SAT 98
[2023-11-28] MEDS: IPRATROPIUM BROM 0.5 MG/2.5ML INH SOL NEB SCH (22:00)
[2023-11-28] MEDS: ALBUTEROL SULF 2.5 MG/0.5ML(0.5%) NEB SOLN NEB SCH (22:00)
[2023-11-29] VITALS (41 sets, daily range): BP systolic 114–189; BP diastolic 66–108; PULSE 67–100; RESP 18–24; TEMP 98.8–101.5; O2SAT 89–100
[2023-11-29 07:33] LABS: Basophils # (auto) 0 10 ^3/uL (0-0.2); Basophils % (auto) 0.3 % (0.0-2.0); Eosinophils # (auto) 0 10 ^3/uL (0-0.8); Eosinophils % (auto) 0.3 % (0.0-7.0); Hematocrit 38.8 % (36.0-46.0); Hemoglobin 12.3 g/dL (12.2-16.2); Lymphocytes # (auto) 1.5 10 ^3/uL (0.4-5.4); Lymphocytes % (auto) 16.1 % (10.0-50.0); Mean Corpuscular Hemoglobin 28.3 pg (28.0-32.0); Mean Corpuscular Hgb Conc. 31.7 g/dL (32.0-36.0); Mean Corpuscular Volume 89.3 fL (80.0-100.0); Monocytes # (auto) 1.1 10 ^3/uL (0-1.3); Monocytes % (auto) 11.6 % (0.0-12.0); Neutrophils # (auto) 6.6 10 ^3/uL (1.6-8.6); Neutrophils % (auto) 71.7 % (37.0-80.0); Nucleated Red Blood Cells % 0.2 %; Red Blood Cells 4.35 10^6/uL (4.0-5.20); Red Cell Distribution Width 14.6 % (11.8-14.3); White Blood Cell 9.2 10^3/uL (4.4-10.8)
[2023-11-29 07:56] LABS: Alanine Aminotransferase 23 U/L (7-40); Albumin 4.4 g/dL (3.2-4.8); Alkaline Phosphatase 68 U/L (46-116); Anion Gap 2 (5-15); Aspartate Aminotransferase 19 U/L (13-40); BUN/Creatinine Ratio 25.2 (10.0-20.0); Bilirubin, Total 0.3 mg/dL (0.2-1.0); Blood Urea Nitrogen 28 mg/dL (9-23); Calcium 9.3 mg/dL (8.5-10.1); Carbon Dioxide 36 mmol/L (20-30); Chloride 100 mmol/L (98-107); Glucose 171 mg/dL (74-106); Potassium 4.7 mmol/L (3.5-5.1); Sodium 138 mmol/L (136-145); Total Protein 7.4 g/dL (5.7-8.2)
[2023-11-29 11:33] LABS: Base Excess 7.5 mmol/L (-2.0-2.0)
[2023-11-29] MEDS: HYDROCORTISONE SOD SUCC 100 MG/2ML INJ VIAL IV SCH (13:15)
[2023-11-29 14:02] LABS: Base Excess 8.8 mmol/L (-2.0-2.0)
[2023-11-29] MEDS: ETOMIDATE (2MG/ML) 20ML VIAL IV ONE ×2 (14:37→14:38)
[2023-11-29] MEDS: ROCURONIUM 10MG/ML 10ML VIAL IV ONE (14:40)
[2023-11-29] MEDS: MIDAZOLAM DRIP 50 mg/50mL 50 ML IV SCH (14:50)
[2023-11-29] MEDS: fentaNYL Drip 2500mCg/250mlNS 250 ML IV SCH (15:53)
[2023-11-29 17:15] LABS: Base Excess 9.3 mmol/L (-2.0-2.0)
[2023-11-29] MEDS: LABETALOL HCL 5 MG/ML 4ML SYRINGE IV ONE (18:35)
[2023-11-30] VITALS (112 sets, daily range): BP systolic 100–178; BP diastolic 62–98; PULSE 72–86; RESP 15–25; TEMP 96.4–99.9; O2SAT 90–99
[2023-11-30] MEDS: LIDOCAINE 1% (LOCAL ANESTH.) PF 5ml SDV ID ONE (00:30)
[2023-11-30 04:24] LABS: Basophils # (auto) 0 10 ^3/uL (0-0.2); Basophils % (auto) 0.2 % (0.0-2.0); Eosinophils # (auto) 0 10 ^3/uL (0-0.8); Hematocrit 36.8 % (36.0-46.0); Hemoglobin 11.7 g/dL (12.2-16.2); Lymphocytes # (auto) 0.9 10 ^3/uL (0.4-5.4); Lymphocytes % (auto) 12.2 % (10.0-50.0); Mean Corpuscular Hemoglobin 27.8 pg (28.0-32.0); Mean Corpuscular Hgb Conc. 31.8 g/dL (32.0-36.0); Mean Corpuscular Volume 87.4 fL (80.0-100.0); Monocytes # (auto) 0.8 10 ^3/uL (0-1.3); Monocytes % (auto) 10.7 % (0.0-12.0); Neutrophils # (auto) 5.8 10 ^3/uL (1.6-8.6); Neutrophils % (auto) 76.9 % (37.0-80.0); Red Blood Cells 4.21 10^6/uL (4.0-5.20); Red Cell Distribution Width 14.4 % (11.8-14.3); White Blood Cell 7.5 10^3/uL (4.4-10.8)
[2023-11-30 04:49] LABS: Alanine Aminotransferase 20 U/L (7-40); Albumin 3.8 g/dL (3.2-4.8); Alkaline Phosphatase 59 U/L (46-116); Anion Gap 5 (5-15); Aspartate Aminotransferase 20 U/L (13-40); BUN/Creatinine Ratio 27.5 (10.0-20.0); Bilirubin, Total 1.1 mg/dL (0.2-1.0); Blood Urea Nitrogen 25 mg/dL (9-23); Calcium 8.9 mg/dL (8.7-10.4); Carbon Dioxide 33 mmol/L (20-30); Chloride 99 mmol/L (98-107); Glucose 163 mg/dL (74-106); Potassium 3.8 mmol/L (3.5-5.1); Sodium 137 mmol/L (136-145); Total Protein 6.8 g/dL (5.7-8.2)
[2023-11-30] MEDS ORDERED: GABA-1250 PO (07:56)
[2023-11-30] MEDS ORDERED: FURO20TA3 PO (07:56)
[2023-11-30] MEDS ORDERED: BENA40TA83 PO (08:01)
[2023-11-30] MEDS ORDERED: NALD0.2T7 PO (08:29)
[2023-11-30] MEDS ORDERED: PREG75CA PO (08:29)
[2023-11-30] MEDS ORDERED: METO1TAB9 PO (08:29)
[2023-11-30] MEDS ORDERED: IBUP-1456 PO (08:29)
[2023-11-30] MEDS ORDERED: DICL1GEL59 TOP (08:29)
[2023-11-30] MEDS ORDERED: ASPI-543 PO (08:29)
[2023-11-30] MEDS ORDERED: POTA10TA51 PO (08:29)
[2023-11-30 08:40] LABS: Base Excess 7.9 mmol/L (-2.0-2.0)
[2023-11-30] MEDS ORDERED: ALBU108A5 INH (09:01)
[2023-11-30] MEDS ORDERED: FLUT110A INH (09:01)
[2023-11-30] MEDS ORDERED: FLUT100I INH (09:01)
[2023-11-30] MEDS ORDERED: ALBU0.084 INH (09:01)
[2023-11-30] MEDS ORDERED: IPRIH (09:13)
[2023-11-30] MEDS: SODIUM CHLOR 0.9% PF (SALINE LOCK) 10ML VIAL/SYR IV SCH (10:00)
[2023-11-30] MEDS: PROPOFOL 100 ML IV SCH (11:00)
[2023-12-01] VITALS (113 sets, daily range): BP systolic 113–189; BP diastolic 62–100; PULSE 53–89; RESP 16–24; TEMP 96.3–98.7; O2SAT 89–100
[2023-12-01 03:53] LABS: Basophils # (auto) 0 10 ^3/uL (0-0.2); Basophils % (auto) 0.4 % (0.0-2.0); Eosinophils # (auto) 0 10 ^3/uL (0-0.8); Eosinophils % (auto) 0.2 % (0.0-7.0); Hemoglobin 12.3 g/dL (12.2-16.2); Lymphocytes # (auto) 0.8 10 ^3/uL (0.4-5.4); Lymphocytes % (auto) 10.7 % (10.0-50.0); Mean Corpuscular Hemoglobin 27.7 pg (28.0-32.0); Mean Corpuscular Hgb Conc. 32.3 g/dL (32.0-36.0); Mean Corpuscular Volume 85.8 fL (80.0-100.0); Monocytes # (auto) 0.8 10 ^3/uL (0-1.3); Monocytes % (auto) 10.3 % (0.0-12.0); Neutrophils # (auto) 6.2 10 ^3/uL (1.6-8.6); Neutrophils % (auto) 78.4 % (37.0-80.0); Red Blood Cells 4.42 10^6/uL (4.0-5.20); Red Cell Distribution Width 15.1 % (11.8-14.3); White Blood Cell 7.8 10^3/uL (4.4-10.8)
[2023-12-01 04:24] LABS: Alanine Aminotransferase 17 U/L (7-40); Albumin 3.8 g/dL (3.2-4.8); Alkaline Phosphatase 59 U/L (46-116); Anion Gap 6 (5-15); Aspartate Aminotransferase 14 U/L (13-40); BUN/Creatinine Ratio 21.6 (10.0-20.0); Bilirubin, Total 0.9 mg/dL (0.2-1.0); Blood Urea Nitrogen 16 mg/dL (9-23); Calcium 8.8 mg/dL (8.7-10.4); Carbon Dioxide 31 mmol/L (20-30); Chloride 102 mmol/L (98-107); Glucose 161 mg/dL (74-106); Potassium 3.1 mmol/L (3.5-5.1); Sodium 139 mmol/L (136-145)
[2023-12-01 04:25] LABS: Total Protein 6.8 g/dL (5.7-8.2)
[2023-12-01] MEDS: POTASSIUM CHL 20MEQ/100ML 100 ML IV ONE (05:40)
[2023-12-01] MEDS ORDERED: hydrALAZINE HCL 20 MG/ML VL IV SCH (06:00)
[2023-12-01] MEDS: hydrALAZINE HCL 20 MG/ML VL IV SCH (06:19)
[2023-12-01 08:06] LABS: Base Excess 6.6 mmol/L (-2.0-2.0)
[2023-12-01] MEDS ORDERED: EPINEPHrine HCL 1 MG/1 ML AMP ONE (09:44)
[2023-12-01] MEDS ORDERED: LIDOCAINE 2%HCL (LOCAL ANESTH.) INJ 20ML MDV ONE (09:44)
[2023-12-01] MEDS ORDERED: SODIUM CHLORIDE LOCK 10 ML ONE (09:44)
[2023-12-01] MEDS ORDERED: GLYCOPYRROLATE 0.2 MG/ML 1ML VIAL ONE (09:45)
[2023-12-01] MEDS ORDERED: MIDAZOLAM HCL 5 MG/ML-1ML VIAL ONE (09:45)
[2023-12-01] MEDS ORDERED: fentaNYL CITRATE 100 MCG/2 ML VL ONE (09:46)
[2023-12-01] MEDS: LIDOCAINE 2% JELLY 11ml (GLYDO) ONE (09:49)
[2023-12-01] MEDS: PANTOPRAZOLE 40 MG/10 ML VIAL INJ IV ONE (11:56)
[2023-12-01] MEDS: POTASSIUM CHL 20MEQ/100ML 100 ML IV SCH (16:30)
[2023-12-01 22:38] LABS: Base Excess 7.1 mmol/L (-2.0-2.0)
[2023-12-02] VITALS (68 sets, daily range): BP systolic 92–138; BP diastolic 51–73; PULSE 55–77; RESP 11–19; TEMP 97–98.8; O2SAT 92–97
[2023-12-02 01:59] LABS: Basophils # (auto) 0.1 10 ^3/uL (0-0.2); Basophils % (auto) 0.6 % (0.0-2.0); Eosinophils # (auto) 0.2 10 ^3/uL (0-0.8); Eosinophils % (auto) 2.1 % (0.0-7.0); Hematocrit 36.8 % (36.0-46.0); Hemoglobin 11.6 g/dL (12.2-16.2); Lymphocytes # (auto) 1.2 10 ^3/uL (0.4-5.4); Lymphocytes % (auto) 14.9 % (10.0-50.0); Mean Corpuscular Hemoglobin 27.4 pg (28.0-32.0); Mean Corpuscular Hgb Conc. 31.5 g/dL (32.0-36.0); Mean Corpuscular Volume 87.1 fL (80.0-100.0); Monocytes # (auto) 0.8 10 ^3/uL (0-1.3); Monocytes % (auto) 10.1 % (0.0-12.0); Neutrophils # (auto) 5.8 10 ^3/uL (1.6-8.6); Neutrophils % (auto) 72.3 % (37.0-80.0); Nucleated Red Blood Cells % 0.1 %; Red Blood Cells 4.22 10^6/uL (4.0-5.20); Red Cell Distribution Width 15.2 % (11.8-14.3)
[2023-12-02 02:16] LABS: Alanine Aminotransferase 14 U/L (7-40); Albumin 3.5 g/dL (3.2-4.8); Alkaline Phosphatase 52 U/L (46-116); Anion Gap 4 (5-15); Aspartate Aminotransferase 12 U/L (13-40); BUN/Creatinine Ratio 18.8 (10.0-20.0); Blood Urea Nitrogen 13 mg/dL (9-23); Calcium 8.3 mg/dL (8.7-10.4); Carbon Dioxide 32 mmol/L (20-30); Chloride 107 mmol/L (98-107); Glucose 120 mg/dL (74-106); Potassium 3.2 mmol/L (3.5-5.1); Sodium 143 mmol/L (136-145)
[2023-12-02 02:17] LABS: Bilirubin, Total 0.5 mg/dL (0.2-1.0); Total Protein 6.3 g/dL (5.7-8.2)
[2023-12-02 02:42] LABS: Base Excess 4.6 mmol/L (-2.0-2.0)
[2023-12-02] MEDS: POTASSIUM CHL 20MEQ/100ML 100 ML IV SCH ×2 (04:15→08:30)
[2023-12-02 08:17] LABS: Base Excess 3.2 mmol/L (-2.0-2.0)
[2023-12-02] MEDS: PANTOPRAZOLE 40 MG/10 ML VIAL INJ IV SCH (08:34)
[2023-12-02 12:25] LABS: Alanine Aminotransferase 15 U/L (7-40); Alkaline Phosphatase 52 U/L (46-116); Calcium 8.5 mg/dL (8.5-10.1); Carbon Dioxide 32 mmol/L (20-30); Chloride 106 mmol/L (98-107); Glucose 135 mg/dL (74-106); Potassium 4.2 mmol/L (3.5-5.1)
[2023-12-02 12:26] LABS: Albumin 3.6 g/dL (3.2-4.8); Anion Gap 4 (5-15); Aspartate Aminotransferase 13 U/L (13-40); BUN/Creatinine Ratio 18.3 (10.0-20.0); Bilirubin, Total 0.4 mg/dL (0.2-1.0); Blood Urea Nitrogen 15 mg/dL (9-23); Sodium 142 mmol/L (136-145)
[2023-12-02] MEDS ORDERED: Glucerna 1.2 Cal 1Liter BOTTLE GT SCH (17:30)
[2023-12-03] VITALS (92 sets, daily range): BP systolic 107–177; BP diastolic 56–92; PULSE 60–85; RESP 13–18; TEMP 98–99.1; O2SAT 91–98
[2023-12-03 02:18] LABS: Basophils # (auto) 0 10 ^3/uL (0-0.2); Basophils % (auto) 0.4 % (0.0-2.0); Eosinophils # (auto) 0.2 10 ^3/uL (0-0.8); Eosinophils % (auto) 2.2 % (0.0-7.0); Hematocrit 36.5 % (36.0-46.0); Hemoglobin 11.5 g/dL (12.2-16.2); Lymphocytes # (auto) 0.4 10 ^3/uL (0.4-5.4); Lymphocytes % (auto) 4.5 % (10.0-50.0); Mean Corpuscular Hemoglobin 27.8 pg (28.0-32.0); Mean Corpuscular Hgb Conc. 31.5 g/dL (32.0-36.0); Mean Corpuscular Volume 88.1 fL (80.0-100.0); Monocytes # (auto) 0.7 10 ^3/uL (0-1.3); Monocytes % (auto) 8.9 % (0.0-12.0); Neutrophils # (auto) 6.8 10 ^3/uL (1.6-8.6); Red Blood Cells 4.15 10^6/uL (4.0-5.20); Red Cell Distribution Width 14.9 % (11.8-14.3); White Blood Cell 8.1 10^3/uL (4.4-10.8)
[2023-12-03 02:34] LABS: Alanine Aminotransferase 15 U/L (7-40); Albumin 3.7 g/dL (3.2-4.8); Alkaline Phosphatase 54 U/L (46-116); Anion Gap 5 (5-15); Aspartate Aminotransferase 12 U/L (13-40); BUN/Creatinine Ratio 23.9 (10.0-20.0); Blood Urea Nitrogen 17 mg/dL (9-23); Calcium 8.5 mg/dL (8.7-10.4); Carbon Dioxide 32 mmol/L (20-30); Chloride 105 mmol/L (98-107); Glucose 142 mg/dL (74-106); Potassium 4.1 mmol/L (3.5-5.1); Sodium 142 mmol/L (136-145)
[2023-12-03 02:35] LABS: Bilirubin, Total 0.6 mg/dL (0.2-1.0); Total Protein 6.6 g/dL (5.7-8.2)
[2023-12-03 08:30] LABS: Base Excess -0.6 mmol/L (-2.0-2.0)
[2023-12-04] VITALS (101 sets, daily range): BP systolic 104–199; BP diastolic 63–132; PULSE 64–102; RESP 11–26; TEMP 99.1–101.3; O2SAT 17–100
[2023-12-04 04:31] LABS: Alanine Aminotransferase 42 U/L (7-40); Albumin 3.7 g/dL (3.2-4.8); Alkaline Phosphatase 64 U/L (46-116); Anion Gap 6 (5-15); Aspartate Aminotransferase 41 U/L (13-40); BUN/Creatinine Ratio 28.1 (10.0-20.0); Blood Urea Nitrogen 18 mg/dL (9-23); Calcium 8.2 mg/dL (8.7-10.4); Carbon Dioxide 28 mmol/L (20-30); Chloride 106 mmol/L (98-107); Glucose 177 mg/dL (74-106); Magnesium 1.9 mg/dL (1.6-2.6); Potassium 3.7 mmol/L (3.5-5.1); Sodium 140 mmol/L (136-145)
[2023-12-04 04:32] LABS: Bilirubin, Total 0.4 mg/dL (0.2-1.0); Total Protein 6.6 g/dL (5.7-8.2)
[2023-12-04 04:34] LABS: Basophils # (auto) 0 10 ^3/uL (0-0.2); Basophils % (auto) 0.5 % (0.0-2.0); Eosinophils # (auto) 0.2 10 ^3/uL (0-0.8); Eosinophils % (auto) 2.3 % (0.0-7.0); Hemoglobin 12.2 g/dL (12.2-16.2); Lymphocytes # (auto) 0.3 10 ^3/uL (0.4-5.4); Lymphocytes % (auto) 3.6 % (10.0-50.0); Mean Corpuscular Hemoglobin 28.2 pg (28.0-32.0); Mean Corpuscular Volume 88.1 fL (80.0-100.0); Monocytes # (auto) 1.1 10 ^3/uL (0-1.3); Monocytes % (auto) 12.3 % (0.0-12.0); Neutrophils % (auto) 81.3 % (37.0-80.0); Nucleated Red Blood Cells % 0.1 %; Red Blood Cells 4.31 10^6/uL (4.0-5.20); Red Cell Distribution Width 15.5 % (11.8-14.3); White Blood Cell 8.6 10^3/uL (4.4-10.8)
[2023-12-04 07:49] LABS: Base Excess 2.7 mmol/L (-2.0-2.0)
[2023-12-04] MEDS: ACETAMINOPHEN 325 MG TAB PO PRN (08:42)
[2023-12-04 11:16] LABS: Base Excess 4.9 mmol/L (-2.0-2.0)
[2023-12-04] MEDS: ROCURONIUM 10MG/ML 10ML VIAL IV ONE ×2 (14:09→14:51)
[2023-12-05] VITALS (114 sets, daily range): BP systolic 91–187; BP diastolic 50–102; PULSE 83–114; RESP 11–29; TEMP 97.7–100.8; O2SAT 88–100
[2023-12-05 04:56] LABS: Basophils # (auto) 0 10 ^3/uL (0-0.2); Basophils % (auto) 0.4 % (0.0-2.0); Eosinophils # (auto) 0.1 10 ^3/uL (0-0.8); Eosinophils % (auto) 1.6 % (0.0-7.0); Hematocrit 39.1 % (36.0-46.0); Hemoglobin 12.5 g/dL (12.2-16.2); Lymphocytes # (auto) 0.4 10 ^3/uL (0.4-5.4); Lymphocytes % (auto) 4.2 % (10.0-50.0); Mean Corpuscular Hemoglobin 28.2 pg (28.0-32.0); Mean Corpuscular Hgb Conc. 31.9 g/dL (32.0-36.0); Mean Corpuscular Volume 88.4 fL (80.0-100.0); Monocytes # (auto) 1.1 10 ^3/uL (0-1.3); Monocytes % (auto) 12.1 % (0.0-12.0); Neutrophils # (auto) 7.5 10 ^3/uL (1.6-8.6); Neutrophils % (auto) 81.7 % (37.0-80.0); Red Blood Cells 4.42 10^6/uL (4.0-5.20); Red Cell Distribution Width 15.3 % (11.8-14.3); White Blood Cell 9.1 10^3/uL (4.4-10.8)
[2023-12-05 04:57] LABS: Alanine Aminotransferase 36 U/L (7-40); Alkaline Phosphatase 66 U/L (46-116); Anion Gap 7 (5-15); Aspartate Aminotransferase 24 U/L (13-40); BUN/Creatinine Ratio 25.8 (10.0-20.0); Blood Urea Nitrogen 17 mg/dL (9-23); Carbon Dioxide 29 mmol/L (20-30); Chloride 103 mmol/L (98-107); Glucose 162 mg/dL (74-106); Potassium 3.7 mmol/L (3.5-5.1); Sodium 139 mmol/L (136-145)
[2023-12-05 04:58] LABS: Bilirubin, Total 0.6 mg/dL (0.2-1.0); Total Protein 7.3 g/dL (5.7-8.2)
[2023-12-05 09:00] LABS: Base Excess 4.6 mmol/L (-2.0-2.0)
[2023-12-06] VITALS (109 sets, daily range): BP systolic 99–181; BP diastolic 58–108; PULSE 78–100; RESP 12–22; TEMP 97–99.5; O2SAT 92–100
[2023-12-06 04:11] LABS: Basophils # (auto) 0 10 ^3/uL (0-0.2); Basophils % (auto) 0.1 % (0.0-2.0); Eosinophils # (auto) 0.2 10 ^3/uL (0-0.8); Eosinophils % (auto) 1.9 % (0.0-7.0); Hematocrit 35.7 % (36.0-46.0); Hemoglobin 11.5 g/dL (12.2-16.2); Lymphocytes # (auto) 0.5 10 ^3/uL (0.4-5.4); Lymphocytes % (auto) 5.4 % (10.0-50.0); Mean Corpuscular Hemoglobin 28.2 pg (28.0-32.0); Mean Corpuscular Hgb Conc. 32.2 g/dL (32.0-36.0); Mean Corpuscular Volume 87.7 fL (80.0-100.0); Monocytes # (auto) 0.7 10 ^3/uL (0-1.3); Monocytes % (auto) 8.5 % (0.0-12.0); Neutrophils # (auto) 7.4 10 ^3/uL (1.6-8.6); Neutrophils % (auto) 84.1 % (37.0-80.0); Red Blood Cells 4.07 10^6/uL (4.0-5.20); Red Cell Distribution Width 14.8 % (11.8-14.3); White Blood Cell 8.8 10^3/uL (4.4-10.8)
[2023-12-06 04:30] LABS: Alanine Aminotransferase 36 U/L (7-40); Albumin 3.7 g/dL (3.2-4.8); Alkaline Phosphatase 69 U/L (46-116); Anion Gap 6 (5-15); Aspartate Aminotransferase 26 U/L (13-40); BUN/Creatinine Ratio 25.8 (10.0-20.0); Blood Urea Nitrogen 16 mg/dL (9-23); Carbon Dioxide 32 mmol/L (20-30); Chloride 103 mmol/L (98-107); Glucose 153 mg/dL (74-106); Potassium 3.3 mmol/L (3.5-5.1); Sodium 141 mmol/L (136-145)
[2023-12-06 04:31] LABS: Bilirubin, Total 0.5 mg/dL (0.2-1.0); Total Protein 6.6 g/dL (5.7-8.2)
[2023-12-06 06:13] LABS: Base Excess 7.2 mmol/L (-2.0-2.0)
[2023-12-06] MEDS: POTASSIUM CHL 20MEQ/100ML 100 ML IV SCH (09:27)
[2023-12-06] MEDS: FUROSEMIDE 20 MG/2 ML VIAL IV ONE (12:17)
[2023-12-06] MEDS: methylPREDNISolone SOD SUCC 40 MG/ML VL IV SCH (22:12)
[2023-12-07] VITALS (109 sets, daily range): BP systolic 108–204; BP diastolic 53–107; PULSE 73–118; RESP 14–37; TEMP 92.1–99.7; O2SAT 89–99
[2023-12-07 03:55] LABS: Basophils # (auto) 0.1 10 ^3/uL (0-0.2); Basophils % (auto) 0.7 % (0.0-2.0); Eosinophils # (auto) 0.1 10 ^3/uL (0-0.8); Eosinophils % (auto) 1.1 % (0.0-7.0); Hematocrit 37.8 % (36.0-46.0); Hemoglobin 12.2 g/dL (12.2-16.2); Lymphocytes # (auto) 0.5 10 ^3/uL (0.4-5.4); Lymphocytes % (auto) 5.6 % (10.0-50.0); Mean Corpuscular Hemoglobin 28.4 pg (28.0-32.0); Mean Corpuscular Hgb Conc. 32.3 g/dL (32.0-36.0); Mean Corpuscular Volume 87.8 fL (80.0-100.0); Monocytes # (auto) 0.5 10 ^3/uL (0-1.3); Monocytes % (auto) 4.8 % (0.0-12.0); Neutrophils # (auto) 8.5 10 ^3/uL (1.6-8.6); Neutrophils % (auto) 87.8 % (37.0-80.0); Nucleated Red Blood Cells % 0.1 %; Red Blood Cells 4.31 10^6/uL (4.0-5.20); Red Cell Distribution Width 15.4 % (11.8-14.3); White Blood Cell 9.7 10^3/uL (4.4-10.8)
[2023-12-07 04:09] LABS: Alanine Aminotransferase 39 U/L (7-40); Albumin 4.1 g/dL (3.2-4.8); Alkaline Phosphatase 75 U/L (46-116); Anion Gap 6 (5-15); Aspartate Aminotransferase 29 U/L (13-40); BUN/Creatinine Ratio 21.4 (10.0-20.0); Bilirubin, Total 0.5 mg/dL (0.2-1.0); Blood Urea Nitrogen 15 mg/dL (9-23); Calcium 9.3 mg/dL (8.5-10.1); Carbon Dioxide 31 mmol/L (20-30); Chloride 103 mmol/L (98-107); Glucose 201 mg/dL (74-106); Potassium 3.8 mmol/L (3.5-5.1); Sodium 140 mmol/L (136-145); Total Protein 7.3 g/dL (5.7-8.2)
[2023-12-07 07:27] LABS: Base Excess 2.7 mmol/L (-2.0-2.0)
[2023-12-07] MEDS: CEFEPIME 2GM/50ML NS 50 ML IV SCH (09:08)
[2023-12-07] MEDS: hydrALAZINE HCL 20 MG/ML VL IV PRN (10:03)
[2023-12-07] MEDS: LABETALOL HCL 5 MG/ML 4ML SYRINGE IV ONE (10:44)
[2023-12-07 15:20] LABS: Base Excess 8.7 mmol/L (-2.0-2.0)
[2023-12-07] MEDS: niCARdipine 50 MG in SODIUM CHL 0.9% 230 ML IV SCH (20:43)
[2023-12-08] VITALS (109 sets, daily range): BP systolic 115–185; BP diastolic 65–93; PULSE 67–114; RESP 15–28; TEMP 97–99.9; O2SAT 92–98
[2023-12-08 04:15] LABS: Basophils # (auto) 0 10 ^3/uL (0-0.2); Basophils % (auto) 0.3 % (0.0-2.0); Eosinophils # (auto) 0 10 ^3/uL (0-0.8); Eosinophils % (auto) 0.1 % (0.0-7.0); Hematocrit 38.8 % (36.0-46.0); Hemoglobin 12.5 g/dL (12.2-16.2); Lymphocytes # (auto) 0.8 10 ^3/uL (0.4-5.4); Lymphocytes % (auto) 7.1 % (10.0-50.0); Mean Corpuscular Hemoglobin 27.7 pg (28.0-32.0); Mean Corpuscular Hgb Conc. 32.3 g/dL (32.0-36.0); Mean Corpuscular Volume 85.7 fL (80.0-100.0); Monocytes # (auto) 0.5 10 ^3/uL (0-1.3); Monocytes % (auto) 4.4 % (0.0-12.0); Neutrophils # (auto) 9.4 10 ^3/uL (1.6-8.6); Neutrophils % (auto) 88.1 % (37.0-80.0); Nucleated Red Blood Cells % 0.1 %; Red Blood Cells 4.52 10^6/uL (4.0-5.20); Red Cell Distribution Width 14.8 % (11.8-14.3); White Blood Cell 10.6 10^3/uL (4.4-10.8)
[2023-12-08 05:00] LABS: Alanine Aminotransferase 32 U/L (7-40); Albumin 4.2 g/dL (3.2-4.8); Alkaline Phosphatase 70 U/L (46-116); Anion Gap 6 (5-15); Aspartate Aminotransferase 26 U/L (13-40); Bilirubin, Total 0.6 mg/dL (0.2-1.0); Blood Urea Nitrogen 14 mg/dL (9-23); Calcium 9.3 mg/dL (8.5-10.1); Carbon Dioxide 33 mmol/L (20-30); Chloride 98 mmol/L (98-107); Glucose 188 mg/dL (74-106); Potassium 3.8 mmol/L (3.5-5.1); Sodium 137 mmol/L (136-145); Total Protein 7.4 g/dL (5.7-8.2)
[2023-12-08 11:48] LABS: Base Excess 8.1 mmol/L (-2.0-2.0)
[2023-12-08] MEDS: POTASSIUM CHL 20MEQ/100ML 100 ML IV ONE (17:52)
[2023-12-08] MEDS: MAGNESIUM SULFATE 1GM/100ML 100 ML IV ONE (21:20)
[2023-12-09] VITALS (104 sets, daily range): BP systolic 117–187; BP diastolic 61–108; PULSE 60–88; RESP 12–26; TEMP 97.2–99.1; O2SAT 90–98
[2023-12-09 04:01] LABS: Basophils # (auto) 0 10 ^3/uL (0-0.2); Basophils % (auto) 0.2 % (0.0-2.0); Eosinophils # (auto) 0 10 ^3/uL (0-0.8); Hematocrit 38.6 % (36.0-46.0); Hemoglobin 12.3 g/dL (12.2-16.2); Lymphocytes # (auto) 1.1 10 ^3/uL (0.4-5.4); Lymphocytes % (auto) 12.2 % (10.0-50.0); Mean Corpuscular Hemoglobin 27.7 pg (28.0-32.0); Mean Corpuscular Hgb Conc. 31.9 g/dL (32.0-36.0); Mean Corpuscular Volume 86.9 fL (80.0-100.0); Monocytes # (auto) 1.4 10 ^3/uL (0-1.3); Monocytes % (auto) 14.9 % (0.0-12.0); Neutrophils # (auto) 6.7 10 ^3/uL (1.6-8.6); Neutrophils % (auto) 72.7 % (37.0-80.0); Nucleated Red Blood Cells % 0.1 %; Red Blood Cells 4.44 10^6/uL (4.0-5.20); Red Cell Distribution Width 14.4 % (11.8-14.3); White Blood Cell 9.2 10^3/uL (4.4-10.8)
[2023-12-09 04:14] LABS: Alanine Aminotransferase 28 U/L (7-40); Alkaline Phosphatase 64 U/L (46-116); Anion Gap 6 (5-15); Aspartate Aminotransferase 17 U/L (13-40); BUN/Creatinine Ratio 29.8 (10.0-20.0); Blood Urea Nitrogen 17 mg/dL (9-23); Calcium 9.3 mg/dL (8.7-10.4); Carbon Dioxide 33 mmol/L (20-30); Chloride 99 mmol/L (98-107); Glucose 139 mg/dL (74-106); Magnesium 1.9 mg/dL (1.6-2.6); Potassium 3.5 mmol/L (3.5-5.1); Sodium 138 mmol/L (136-145)
[2023-12-09 04:15] LABS: Bilirubin, Total 0.7 mg/dL (0.2-1.0); Total Protein 7.4 g/dL (5.7-8.2)
[2023-12-09] MEDS: POTASSIUM CHL 20MEQ/100ML 100 ML IV ONE ×2 (06:16→10:41)
[2023-12-09] MEDS: MAGNESIUM SULFATE 1GM/100ML 100 ML IV ONE (06:17)
[2023-12-09 06:59] LABS: Base Excess 3.6 mmol/L (-2.0-2.0)
[2023-12-09] MEDS: niCARdipine 50 MG in SODIUM CHL 0.9% 230 ML IV SCH (07:30)
[2023-12-09] MEDS: MORPHINE SULFATE INJ 2 MG/ml SYRG IV PRN (15:25)
[2023-12-10] VITALS (112 sets, daily range): BP systolic 93–171; BP diastolic 44–95; PULSE 62–94; RESP 11–32; TEMP 98.1–99.1; O2SAT 5–98
[2023-12-10 04:20] LABS: Basophils # (auto) 0 10 ^3/uL (0-0.2); Basophils % (auto) 0.1 % (0.0-2.0); Eosinophils # (auto) 0 10 ^3/uL (0-0.8); Hematocrit 32.1 % (36.0-46.0); Hemoglobin 10.2 g/dL (12.2-16.2); Lymphocytes # (auto) 0.6 10 ^3/uL (0.4-5.4); Lymphocytes % (auto) 7.9 % (10.0-50.0); Mean Corpuscular Hemoglobin 27.5 pg (28.0-32.0); Mean Corpuscular Hgb Conc. 31.8 g/dL (32.0-36.0); Mean Corpuscular Volume 86.5 fL (80.0-100.0); Monocytes # (auto) 0.6 10 ^3/uL (0-1.3); Monocytes % (auto) 7.8 % (0.0-12.0); Neutrophils # (auto) 6.2 10 ^3/uL (1.6-8.6); Neutrophils % (auto) 84.2 % (37.0-80.0); Nucleated Red Blood Cells % 0.1 %; Red Blood Cells 3.72 10^6/uL (4.0-5.20); Red Cell Distribution Width 14.8 % (11.8-14.3); White Blood Cell 7.4 10^3/uL (4.4-10.8)
[2023-12-10 04:39] LABS: Alanine Aminotransferase 38 U/L (7-40); Albumin 2.5 g/dL (3.2-4.8); Alkaline Phosphatase 43 U/L (46-116); Anion Gap 8 (5-15); Aspartate Aminotransferase 24 U/L (13-40); Blood Urea Nitrogen 12 mg/dL (9-23); Carbon Dioxide 22 mmol/L (20-30); Glucose 125 mg/dL (74-106); Sodium 144 mmol/L (136-145)
[2023-12-10 04:40] LABS: Bilirubin, Total 0.5 mg/dL (0.2-1.0); Total Protein 4.5 g/dL (5.7-8.2)
[2023-12-10 04:48] LABS: Chloride 114 mmol/L (98-107)
[2023-12-10 04:50] LABS: Calcium 5.5 mg/dL (8.7-10.4)
[2023-12-10] MEDS: MAGNESIUM SULFATE 1GM/100ML 100 ML IV SCH ×2 (06:06→14:07)
[2023-12-10] MEDS: CALCIUM GLUC 1,000mg/50ml-NS 50 ML IV SCH (06:06)
[2023-12-10] MEDS: POTASSIUM CHL 20MEQ/100ML 100 ML IV ONE ×3 (06:06→14:07)
[2023-12-10 07:15] LABS: Base Excess 7.1 mmol/L (-2.0-2.0)
[2023-12-10] MEDS: FUROSEMIDE 40 MG/4 ML VIAL IV SCH (13:05)
[2023-12-10 21:46] LABS: Potassium 3.9 mmol/L (3.5-5.1)
[2023-12-11] VITALS (31 sets, daily range): BP systolic 132–170; BP diastolic 64–100; PULSE 58–85; RESP 12–28; TEMP 97.9–98.6; O2SAT 93–98
[2023-12-11 06:04] LABS: Basophils # (auto) 0 10 ^3/uL (0-0.2); Basophils % (auto) 0.1 % (0.0-2.0); Eosinophils # (auto) 0 10 ^3/uL (0-0.8); Hematocrit 37.8 % (36.0-46.0); Hemoglobin 12.2 g/dL (12.2-16.2); Lymphocytes # (auto) 0.8 10 ^3/uL (0.4-5.4); Lymphocytes % (auto) 8.8 % (10.0-50.0); Mean Corpuscular Hemoglobin 27.8 pg (28.0-32.0); Mean Corpuscular Hgb Conc. 32.2 g/dL (32.0-36.0); Mean Corpuscular Volume 86.4 fL (80.0-100.0); Monocytes # (auto) 0.8 10 ^3/uL (0-1.3); Monocytes % (auto) 8.9 % (0.0-12.0); Neutrophils # (auto) 7.5 10 ^3/uL (1.6-8.6); Neutrophils % (auto) 82.2 % (37.0-80.0); Red Blood Cells 4.38 10^6/uL (4.0-5.20); Red Cell Distribution Width 14.5 % (11.8-14.3); White Blood Cell 9.2 10^3/uL (4.4-10.8)
[2023-12-11 06:52] LABS: Alanine Aminotransferase 50 U/L (7-40); Albumin 3.9 g/dL (3.2-4.8); Alkaline Phosphatase 66 U/L (46-116); Anion Gap 5 (5-15); Aspartate Aminotransferase 24 U/L (13-40); BUN/Creatinine Ratio 33.3 (10.0-20.0); Bilirubin, Total 0.8 mg/dL (0.2-1.0); Blood Urea Nitrogen 18 mg/dL (9-23); Carbon Dioxide 30 mmol/L (20-30); Chloride 101 mmol/L (98-107); Glucose 180 mg/dL (74-106); Potassium 3.8 mmol/L (3.5-5.1); Sodium 136 mmol/L (136-145)
[2023-12-11 07:28] LABS: Base Excess 2.1 mmol/L (-2.0-2.0)
[2023-12-11 17:08] LABS: Triglycerides 100 mg/dL (< 150)
[2023-12-11 17:09] LABS: LDL Cholesterol 134 mg/dL (< 100)
[2023-12-11 17:10] LABS: Cholesterol 188 mg/dL (< 200); HDL Cholesterol 35 mg/dL (40-59)
[2023-12-11] MEDS: ATORVASTATIN 20 MG TAB PO SCH (22:00)
[2023-12-12] VITALS (18 sets, daily range): BP systolic 130–169; BP diastolic 74–96; PULSE 62–90; RESP 17–22; TEMP 97.6–98.8; O2SAT 94–100
[2023-12-12 06:32] LABS: Basophils # (auto) 0 10 ^3/uL (0-0.2); Basophils % (auto) 0.2 % (0.0-2.0); Eosinophils # (auto) 0 10 ^3/uL (0-0.8); Eosinophils % (auto) 0.1 % (0.0-7.0); Hematocrit 39.5 % (36.0-46.0); Hemoglobin 12.4 g/dL (12.2-16.2); Lymphocytes # (auto) 0.7 10 ^3/uL (0.4-5.4); Lymphocytes % (auto) 7.4 % (10.0-50.0); Mean Corpuscular Hemoglobin 27.3 pg (28.0-32.0); Mean Corpuscular Hgb Conc. 31.4 g/dL (32.0-36.0); Mean Corpuscular Volume 86.9 fL (80.0-100.0); Monocytes # (auto) 0.8 10 ^3/uL (0-1.3); Monocytes % (auto) 8.1 % (0.0-12.0); Neutrophils # (auto) 8.3 10 ^3/uL (1.6-8.6); Neutrophils % (auto) 84.2 % (37.0-80.0); Nucleated Red Blood Cells % 0.1 %; Red Blood Cells 4.55 10^6/uL (4.0-5.20); Red Cell Distribution Width 14.9 % (11.8-14.3); White Blood Cell 9.9 10^3/uL (4.4-10.8)
[2023-12-12 06:55] LABS: Alanine Aminotransferase 76 U/L (7-40); Alkaline Phosphatase 80 U/L (46-116); Anion Gap 7 (5-15); Aspartate Aminotransferase 52 U/L (13-40); BUN/Creatinine Ratio 32.4 (10.0-20.0); Bilirubin, Total 0.7 mg/dL (0.2-1.0); Blood Urea Nitrogen 22 mg/dL (9-23); Calcium 9.6 mg/dL (8.5-10.1); Carbon Dioxide 30 mmol/L (20-30); Chloride 104 mmol/L (98-107); Glucose 194 mg/dL (74-106); Potassium 3.8 mmol/L (3.5-5.1); Sodium 141 mmol/L (136-145); Total Protein 7.4 g/dL (5.7-8.2)
[2023-12-13] VITALS (13 sets, daily range): BP systolic 127–169; BP diastolic 63–98; PULSE 62–98; RESP 14–21; TEMP 97.9–98; O2SAT 95–100
[2023-12-13 06:06] LABS: Basophils # (auto) 0 10 ^3/uL (0-0.2); Eosinophils # (auto) 0 10 ^3/uL (0-0.8); Hematocrit 37.6 % (36.0-46.0); Hemoglobin 11.8 g/dL (12.2-16.2); Lymphocytes # (auto) 0.6 10 ^3/uL (0.4-5.4); Lymphocytes % (auto) 6.4 % (10.0-50.0); Mean Corpuscular Hemoglobin 27.5 pg (28.0-32.0); Mean Corpuscular Hgb Conc. 31.5 g/dL (32.0-36.0); Mean Corpuscular Volume 87.3 fL (80.0-100.0); Monocytes # (auto) 0.6 10 ^3/uL (0-1.3); Monocytes % (auto) 5.9 % (0.0-12.0); Neutrophils # (auto) 8.7 10 ^3/uL (1.6-8.6); Neutrophils % (auto) 87.7 % (37.0-80.0); Red Cell Distribution Width 14.6 % (11.8-14.3)
[2023-12-13 06:18] LABS: Alanine Aminotransferase 78 U/L (7-40); Albumin 3.9 g/dL (3.2-4.8); Alkaline Phosphatase 86 U/L (46-116); Anion Gap 6 (5-15); Aspartate Aminotransferase 35 U/L (13-40); BUN/Creatinine Ratio 33.3 (10.0-20.0); Bilirubin, Total 0.5 mg/dL (0.2-1.0); Blood Urea Nitrogen 20 mg/dL (9-23); Calcium 9.5 mg/dL (8.5-10.1); Carbon Dioxide 30 mmol/L (20-30); Chloride 103 mmol/L (98-107); Glucose 257 mg/dL (74-106); Potassium 4.4 mmol/L (3.5-5.1); Sodium 139 mmol/L (136-145)
[2023-12-13] MEDS ORDERED: AZIT-43 PO (11:24)
[2023-12-13] MEDS ORDERED: METH4PAK PO (11:24)
[2023-12-14] MEDS ORDERED: ATENOLOL 25 MG TAB PO SCH (10:00)
== END 2023-12-13 16:00 | disposition home or self-care (01) | DRG 130 ==
LOC: EDBD 21:45 → ER 21:45 → TELE 11-28 06:39 → ICU WEST 11-29 15:51 → DOU IN ICU 12-11 00:20 → TELE-WESTW 12-11 15:19
PROVIDERS: ADMIT Internal Medicine; ATTEND Internal Medicine
PROC: 5A09357 Assistance with Respiratory Ventilation, Less than 24 Consecutive Hours, Continuous Positive Airway Pressure (ICD-10-PCS; 2023-11-29)
PROC: 02HV33Z Insertion of Infusion Device into Superior Vena Cava, Percutaneous Approach (ICD-10-PCS; 2023-11-30)
PROC: B548ZZA Ultrasonography of Superior Vena Cava, Guidance (ICD-10-PCS; 2023-11-30)
PROC: 0BH17EZ Insertion of Endotracheal Airway into Trachea, Via Natural or Artificial Opening (ICD-10-PCS; 2023-12-01)
PROC: 0BDG8ZX Extraction of Left Upper Lung Lobe, Via Natural or Artificial Opening Endoscopic, Diagnostic (ICD-10-PCS; 2023-12-01)
PROC: 0BDC8ZX Extraction of Right Upper Lung Lobe, Via Natural or Artificial Opening Endoscopic, Diagnostic (ICD-10-PCS; 2023-12-01)
PROC: 5A1955Z Respiratory Ventilation, Greater than 96 Consecutive Hours (ICD-10-PCS; principal; 2023-12-01 09:45)
PROC: 0BP1XDZ Removal of Intraluminal Device from Trachea, External Approach (ICD-10-PCS; 2023-12-04)
PROC: 0BH17EZ Insertion of Endotracheal Airway into Trachea, Via Natural or Artificial Opening (ICD-10-PCS; 2023-12-04)
PROC: 5A09357 Assistance with Respiratory Ventilation, Less than 24 Consecutive Hours, Continuous Positive Airway Pressure (ICD-10-PCS; 2023-12-09)
PROC: 5A1935Z Respiratory Ventilation, Less than 24 Consecutive Hours (ICD-10-PCS; 2023-12-10)
PROC: 5A09357 Assistance with Respiratory Ventilation, Less than 24 Consecutive Hours, Continuous Positive Airway Pressure (ICD-10-PCS; 2023-12-10)
PROC: 5A09357 Assistance with Respiratory Ventilation, Less than 24 Consecutive Hours, Continuous Positive Airway Pressure (ICD-10-PCS; 2023-12-11)
PROC: 5A09357 Assistance with Respiratory Ventilation, Less than 24 Consecutive Hours, Continuous Positive Airway Pressure (ICD-10-PCS; 2023-12-12)
PROC: 5A09357 Assistance with Respiratory Ventilation, Less than 24 Consecutive Hours, Continuous Positive Airway Pressure (ICD-10-PCS; 2023-12-13)
DX: J96.21 Acute and chronic respiratory failure with hypoxia (principal); J15.69 Pneumonia due to other Gram-negative bacteria; E87.4 Mixed disorder of acid-base balance; J15.9 Unspecified bacterial pneumonia; I11.0 Hypertensive heart disease with heart failure; E66.2 Morbid (severe) obesity with alveolar hypoventilation; I50.32 Chronic diastolic (congestive) heart failure; Z68.43 Body mass index [BMI] 50.0-59.9, adult; J44.1 Chronic obstructive pulmonary disease with (acute) exacerbation; J96.02 Acute respiratory failure with hypercapnia; E11.40 Type 2 diabetes mellitus with diabetic neuropathy, unspecified; J98.11 Atelectasis; E78.5 Hyperlipidemia, unspecified; Z91.148 Patient's other noncompliance with medication regimen for other reason; Z20.822 Contact with and (suspected) exposure to COVID-19; E11.21 Type 2 diabetes mellitus with diabetic nephropathy
CPT/HCPCS: 36415; 36569; 36600; 71045; 80053; 80061; 81001; 82140; 82805; 82962; 83036; 83605; 83735; 83880; 84132; 84484; 85025; 85610; 85730; 87040; 87070; 87077; 87081; 87086; 87205; 87426; 87804; 92610; 93005; 93306; 94002; 94003; 94640; 94660; 96374; 97110; 97116; 97530; C9113; G0378; J0171; J0692; J1815; J2250; J2405; J2704; J3480; J3490; J7060